=== PATIENT | male | born 1940 | race Caucasian/White ===

== ENCOUNTER 2023-03-05 10:07 | Emergency (ER) | payer MEDICARE, SELFPAY ==
[2023-03-05] VITALS (20 sets, daily range): BP systolic 186–240; BP diastolic 81–106; PULSE 49–78; RESP 14–23; TEMP 36.4–37; O2SAT 96–100; BMI 22.8
--- NOTE | 2023-03-05 10:14 | DI.RAD.S_ITS ---
PROCEDURE: XR CHEST 1V INDICATIONS: chest pain TECHNIQUE: One view of the chest was acquired. COMPARISON: None. FINDINGS: Surgical changes and devices: None. Lungs and pleura: Lungs are clear. No pleural effusions or pneumothorax. Mediastinum: Mediastinal contours appear normal. Heart size is normal. Bones and chest wall: No suspicious bony lesions. Overlying soft tissues appear unremarkable. IMPRESSION: No acute cardiopulmonary disease. Dictated by: Krzysztof Vasques M.D. on 03/05/2023 at 10:56 Approved by: Krzysztof Vasques M.D. on 03/05/2023 at 10:56
[2023-03-05] MEDS: ASPIRIN 81 MG CHEW TAB 324 MG PO (10:30)
[2023-03-05 10:38] LABS: INR 1.1 (0.9-1.3); Prothrombin Time 12.1 SECONDS (10.1-12.7)
[2023-03-05 10:40] LABS: PTT Partial Thromboplastin Tim 31 SECONDS (26-36)
[2023-03-05 10:41] LABS: Add Manual Diff / Slide Review NO; Basophils Absolute Auto 0 /uL (0-100); Basophils Percent Auto 0.8 % (0-2); Eosinophils Absolute Auto 300 /uL (0-450); Eosinophils Percent Auto 5.1 % (2-4); Hematocrit 41.2 % (41-53); Hemoglobin 14.6 g/dL (13.5-17.5); Lymphocytes Absolute Auto 800 /uL (1100-4500); Lymphocytes Percent Auto 16.5 % (25-40); Mean Corpuscular HGB Conc 35.4 % (30-36); Mean Corpuscular Hemoglobin 32.3 PG (26-34); Mean Corpuscular Volume 91.4 fL (80-100); Monocytes Absolute Auto 500 /uL (0-900); Monocytes Percent Auto 10.1 % (3-14); Neutrophils Absolute Auto 3400 /uL (1500-7000); Neutrophils Percent Auto 67.5 % (50-75); Platelet Count 143 X10^3/uL (150-400); Red Blood Cell Count 4.51 X10^6/uL (4.5-5.9); Red Cell Distribution Width 12.4 % (11.6-14.8)
[2023-03-05 10:44] LABS: Alanine Aminotransferase 21 IU/L (<50); Albumin 4.7 g/dL (3.5-5.0); Albumin Globulin Ratio 1.7 (1.0-2.8); Alkaline Phosphatase 102 U/L (38-126); Aspartate Aminotransferase 29 IU/L (17-59); BUN Creatinine Ratio 26.6 (6-22); Bilirubin Total 0.9 mg/dL (0.2-1.3); Blood Urea Nitrogen 33 mg/dL (9-20); Calcium 9.5 mg/dL (8.4-10.2); Carbon Dioxide 29 mmol/L (22-32); Chloride 103 mmol/L (98-107); Creatine Kinase 73 U/L (55-170); Estimated Glomerular Filt Rate 58 mL/min (>60); Globulin 2.8 g/dL (1.7-4.1); Glucose 95 mg/dL (80-110); HEMOLYSIS < 15 (0-50); Lipase 110 U/L (23-300); Magnesium 2.5 mg/dL (1.6-2.3); Potassium 3.9 mmol/L (3.4-5.1); Sodium 141 mmol/L (137-145); Total Protein 7.5 g/dL (6.3-8.2)
[2023-03-05 10:56] LABS: Troponin I < 0.012 ng/mL (0.01-0.034)
[2023-03-05 13:07] LABS: NT-proBNP (BNP-Adult 18+) 440 pg/mL (<450)
[2023-03-05 13:10] LABS: Troponin I < 0.012 ng/mL (0.01-0.034)
--- NOTE | 2023-03-05 14:42 | ED_ITS ---
HPI - Chest Pain <Catracho Roy PA-C - Last Filed: 03/05/23 16:16> General Chief Complaint: Chest Pain Stated Complaint: Sent by PCP for chest pains/ SOB Time Seen by Provider: 03/05/23 11:16 Mode of arrival: Family Vehicle History of Present Illness HPI narrative: 82-year-old male with past medical history CAD, status post stents in 2013 presents to the ED with 3 weeks of chest pressure on exertion. Patient states that he walks his dog daily, experiences chest tightness and pressure specifically when he is walking uphill. Patient also feels at that time that he needs to burp a lot, his symptoms improve with burping and belching. Patient's does endorse that patient has been belching a lot over the last 3 weeks. Patient states that he had similar symptoms when he had his stents put in in 2013. Patient denies fever, chills, sore throat, cough, shortness of breath, nausea, vomiting, lightheadedness, dizziness, syncope. Related Data Allergies Allergy/AdvReac Type Severity Reaction Status Date / Time No Known Allergies Allergy Unknown Verified 03/05/23 10:29 Review of Systems <Catracho Roy PA-C - Last Filed: 03/05/23 16:16> Review of Systems ROS Unobtainable: All systems reviewed & are unremarkable except as noted in HPI and below Constitutional Constitutional: Denies chills, Denies fatigue, Denies fever(s), Denies frequent falls, Denies lethargy and Denies weakness Eyes Eyes: Denies change in vision, Denies eye discharge, Denies irritation and Denies loss of vision ENT Ears, Nose, Mouth, and Throat: Denies change in voice, Denies dizziness, Denies neck pain, Denies sore throat and Denies throat swelling Cardiovascular Cardiovascular: Denies chest pain, Reports chest pain with activity, Denies irregular heart rhythm, Denies lightheadedness, Denies palpitations, Denies dyspnea, Denies dyspnea on exertion and Denies orthopnea Respiratory Respiratory: Denies cough, Denies dyspnea, Denies dyspnea on exertion and Denies wheezing Gastrointestinal Gastrointestinal: Denies abdominal pain, Reports belching, Denies change in bowel habits, Denies diarrhea, Denies nausea and Denies vomiting Genitourinary Genitourinary: Denies hematuria, Denies flank pain, Denies urinary incontinence and Denies urinary urgency Musculoskeletal Musculoskeletal: Denies back pain, Denies muscle weakness, Denies neck pain, Denies numbness and Denies tingling Integumentary/Breasts Skin/Breast: Denies pruritus, Denies erythema, Denies rash and Denies wounds Neurologic Neurologic: Denies behavioral changes, Denies confusion, Denies dizziness, Denies frequent falls, Denies loss of vision, Denies numbness, Denies tingling and Denies weakness Psychiatric Psychiatric: Denies anxiety, Denies behavioral changes, Denies confusion, Denies depression, Denies homicidal ideation and Denies suicidal ideation Endocrine Endocrine: Denies fatigue, Denies flushing and Denies palpitations Hematologic/Lymphatic Hematologic/Lymphatic: Denies easy bruising Allergic/Immunologic Allergic/Immunologic: Denies urticaria, Denies throat swelling and Denies wheezing Patient History <Catracho Roy PA-C - Last Filed: 03/05/23 16:16> Social History Smoking Status: Former smoker Smoking Status: Former smoker alcohol intake frequency: 0-2 drinks per day Substance Use Type: does not use Exam <Catracho Roy PA-C - Last Filed: 03/05/23 16:16> Narrative Exam Narrative: Const General:?cooperative, healthy appearing and comfortable [facility] Head:?normal to inspection Ears:?hearing grossly normal bilaterally Nose:?external nose normal Face and sinus:?normal facial exam and sinuses nontender Mouth:?oral mucosae normal Throat:?posterior oropharynx normal Eyes General:?appearance normal, both eyes and all related structures Neck Neck:?normal visual inspection and no lymphadenopathy noted Resp Effort & Inspection:?normal respiratory effort Auscultation:?clear to auscultation bilaterally Cardio Rate:?regular rate Rhythm:?regular rhythm GI Abdomen is soft, nondistended, nontender to palpation. Neuro General:?patient alert, patient awake and patient oriented x3 Initial Vital Signs Initial Vital Signs: Vital Signs Pulse Rate 78 03/05/23 10:13 Pulse Oximetry 99 03/05/23 10:13 <Rimma Wade DO - Last Filed: 03/05/23 19:19> Initial Vital Signs Initial Vital Signs: Vital Signs Pulse Rate 78 03/05/23 10:13 Pulse Oximetry 99 07/12/23 10:13 Course <Catracho Roy PA-C - Last Filed: 03/05/23 16:16> Orders Ordered: ED Orders 03/05/23 10:16 EKG-12 Lead Stat 03/05/23 10:20 Complete Blood Count AUTO DIFF Stat Comprehensive Metabolic Panel Stat Lipase Stat Magnesium Stat PTT Partial Thromboplastin Ezekiel Stat Prothrombin Time INR Stat Troponin & CK Cardiac Panel Stat 03/05/23 12:30 BNP [NT-proBNP (BNP-Adult 18+)] Stat Troponin I Stat 03/05/23 14:18 EKG-12 Lead Stat Discontinued Medications Aspirin (Aspirin 81 Mg Chew Tab) 324 mg PO NOW ONE Stop: 03/05/23 10:15 Last Admin: 03/05/23 10:30 Dose: 324 mg Documented By: LINDA Famotidine (Famotidine 20 Mg/2 Ml Vial) 40 mg IV NOW LOKI Last Admin: 03/05/23 15:07 Dose: 40 mg Documented By: JESSICA Vital Signs Vital signs: Vital Signs - 8 hr 03/05/23 11:30 03/05/23 11:30 03/05/23 12:00 Pulse Rate 54 L Respiratory Rate 22 Blood Pressure 186/81 H 196/84 H Pulse Oximetry 96 Oxygen Delivery Method 03/05/23 12:00 03/05/23 12:30 03/05/23 12:34 Pulse Rate 53 L 64 56 L Respiratory Rate 15 20 23 Blood Pressure Pulse Oximetry 97 98 98 Oxygen Delivery Method 03/05/23 12:34 03/05/23 12:36 03/05/23 12:36 Pulse Rate 53 L Respiratory Rate 21 Blood Pressure 208/95 H 192/89 H Pulse Oximetry 100 Oxygen Delivery Method 03/05/23 13:00 03/05/23 13:01 03/05/23 13:01 Pulse Rate 50 L 52 L Respiratory Rate 17 18 Blood Pressure 193/85 H Pulse Oximetry 99 98 Oxygen Delivery Method 03/05/23 13:30 03/05/23 13:30 03/05/23 14:00 Pulse Rate 49 L 53 L Respiratory Rate 17 20 Blood Pressure 191/84 H Pulse Oximetry 99 98 Oxygen Delivery Method 03/05/23 14:01 03/05/23 14:01 03/05/23 14:30 Pulse Rate 51 L 53 L Respiratory Rate 23 20 Blood Pressure 192/81 H Pulse Oximetry 99 99 Oxygen Delivery Method Room Air 03/05/23 14:31 03/05/23 14:31 03/05/23 15:00 Pulse Rate 53 L 69 Respiratory Rate 18 Blood Pressure 195/85 H Pulse Oximetry 98 99 Oxygen Delivery Method 03/05/23 15:01 03/05/23 15:01 03/05/23 16:00 Pulse Rate 71 Respiratory Rate Blood Pressure 240/101 H 210/81 H Pulse Oximetry 97 Oxygen Delivery Method 03/05/23 16:00 Pulse Rate 52 L Respiratory Rate 18 Blood Pressure Pulse Oximetry 98 Oxygen Delivery Method <Rimma Wade, - Last Filed: 03/05/23 19:19> Orders Ordered: ED Orders 03/05/23 10:16 EKG-12 Lead Stat 03/05/23 10:20 Complete Blood Count AUTO DIFF Stat Comprehensive Metabolic Panel Stat Lipase Stat Magnesium Stat PTT Partial Thromboplastin Ezekiel Stat Prothrombin Time INR Stat Troponin & CK Cardiac Panel Stat 03/05/23 12:30 BNP [NT-proBNP (BNP-Adult 18+)] Stat Troponin I Stat 03/05/23 14:18 EKG-12 Lead Stat Discontinued Medications Aspirin (Aspirin 81 Mg Chew Tab) 324 mg PO NOW ONE Stop: 03/05/23 10:15 Last Admin: 03/05/23 10:30 Dose: 324 mg Documented By: LINDA Famotidine (Famotidine 20 Mg/2 Ml Vial) 40 mg IV NOW LOKI Last Admin: 03/05/23 15:07 Dose: 40 mg Documented By: JESSICA Vital Signs Vital signs: Vital Signs - 8 hr 03/05/23 11:30 03/05/23 11:30 03/05/23 12:00 Pulse Rate 54 L Respiratory Rate 22 Blood Pressure 186/81 H 196/84 H Pulse Oximetry 96 Oxygen Delivery Method 03/05/23 12:00 03/05/23 12:30 03/05/23 12:34 Pulse Rate 53 L 64 56 L Respiratory Rate 15 20 23 Blood Pressure Pulse Oximetry 97 98 98 Oxygen Delivery Method 03/05/23 12:34 03/05/23 12:36 03/05/23 12:36 Pulse Rate 53 L Respiratory Rate 21 Blood Pressure 208/95 H 192/89 H Pulse Oximetry 100 Oxygen Delivery Method 03/05/23 13:00 03/05/23 13:01 03/05/23 13:01 Pulse Rate 50 L 52 L Respiratory Rate 17 18 Blood Pressure 193/85 H Pulse Oximetry 99 98 Oxygen Delivery Method 03/05/23 13:30 03/05/23 13:30 03/05/23 14:00 Pulse Rate 49 L 53 L Respiratory Rate 17 20 Blood Pressure 191/84 H Pulse Oximetry 99 98 Oxygen Delivery Method 03/05/23 14:01 03/05/23 14:01 03/05/23 14:30 Pulse Rate 51 L 53 L Respiratory Rate 23 20 Blood Pressure 192/81 H Pulse Oximetry 99 99 Oxygen Delivery Method Room Air 03/05/23 14:31 03/05/23 14:31 03/05/23 15:00 Pulse Rate 53 L 69 Respiratory Rate 18 Blood Pressure 195/85 H Pulse Oximetry 98 99 Oxygen Delivery Method 03/05/23 15:01 03/05/23 15:01 03/05/23 16:00 Pulse Rate 71 Respiratory Rate Blood Pressure 240/101 H 210/81 H Pulse Oximetry 97 Oxygen Delivery Method 03/05/23 16:00 Pulse Rate 52 L Respiratory Rate 18 Blood Pressure Pulse Oximetry 98 Oxygen Delivery Method MDM - Chest Pain <Catracho Roy PA-C - Last Filed: 03/05/23 16:16> Lab Data 03/05/23 10:20 03/05/23 10:20 Labs: Lab Results 03/05/23 03/05/23 03/05/23 Range/Units 10:20 10:20 10:20 WBC 5.0 (4.5-11.0) X10^3/uL RBC 4.51 (4.5-5.9) X10^6/uL Hgb 14.6 (13.5-17.5) g/dL Hct 41.2 (41-53) % MCV 91.4 (80-100) fL MCH 32.3 (26-34) PG MCHC 35.4 (30-36) % RDW 12.4 (11.6-14.8) % Plt Count 143 L (150-400) X10^3/uL Neut % (Auto) 67.5 (50-75) % Lymph % (Auto) 16.5 L (25-40) % [place] % (Auto) 10.1 (3-14) % Eos % (Auto) 5.1 H (2-4) % Baso % (Auto) 0.8 (0-2) % Neut # (Auto) 3400 (7605-1310) /uL Lymph # (Auto) 800 L (6349-4416) /uL [place] # (Auto) 500 (0-900) /uL Eos # (Auto) 300 (0-450) /uL Baso # (Auto) 0 (0-100) /uL PT 12.1 (10.1-12.7) SECONDS INR 1.1 (0.9-1.3) APTT 31 (26-36) SECONDS Sodium 141 (137-145) mmol/L Potassium 3.9 (3.4-5.1) mmol/L Chloride 103 (98-107) mmol/L Carbon Dioxide 29 (22-32) mmol/L BUN 33 H (9-20) mg/dL Creatinine 1.24 (0.66-1.25) mg/dL Estimated GFR 58 L (>60) mL/min BUN/Creatinine Ratio 26.6 H (6-22) Glucose 95 (80-110) mg/dL Calcium 9.5 (8.4-10.2) mg/dL Magnesium 2.5 H (1.6-2.3) mg/dL Total Bilirubin 0.9 (0.2-1.3) mg/dL AST 29 (17-59) IU/L ALT 21 (<50) IU/L Alkaline Phosphatase 102 (38-126) U/L Total Creatine Kinase 73 (55-170) U/L Troponin I < 0.012 (0.01-0.034) ng/mL NT-Pro-B Natriuret Pep (<450) pg/mL Total Protein 7.5 (6.3-8.2) g/dL Albumin 4.7 (3.5-5.0) g/dL Globulin 2.8 (1.7-4.1) g/dL Albumin/Globulin Ratio 1.7 (1.0-2.8) Lipase 110 (23-300) U/L 03/05/23 03/05/23 Range/Units 12:30 12:30 WBC (4.5-11.0) X10^3/uL RBC (4.5-5.9) X10^6/uL Hgb (13.5-17.5) g/dL Hct (41-53) % MCV (80-100) fL MCH (26-34) PG MCHC (30-36) % RDW (11.6-14.8) % Plt Count (150-400) X10^3/uL Neut % (Auto) (50-75) % Lymph % (Auto) (25-40) % [place] % (Auto) (3-14) % Eos % (Auto) (2-4) % Baso % (Auto) (0-2) % Neut # (Auto) (5234-9566) /uL Lymph # (Auto) (6908-3287) /uL [place] # (Auto) (0-900) /uL Eos # (Auto) (0-450) /uL Baso # (Auto) (0-100) /uL PT (10.1-12.7) SECONDS INR (0.9-1.3) APTT (26-36) SECONDS Sodium (137-145) mmol/L Potassium (3.4-5.1) mmol/L Chloride (98-107) mmol/L Carbon Dioxide (22-32) mmol/L BUN (9-20) mg/dL Creatinine (0.66-1.25) mg/dL Estimated GFR (>60) mL/min BUN/Creatinine Ratio (6-22) Glucose (80-110) mg/dL Calcium (8.4-10.2) mg/dL Magnesium (1.6-2.3) mg/dL Total Bilirubin (0.2-1.3) mg/dL AST (17-59) IU/L ALT (<50) IU/L Alkaline Phosphatase (38-126) U/L Total Creatine Kinase (55-170) U/L Troponin I < 0.012 (0.01-0.034) ng/mL NT-Pro-B Natriuret Pep 440 (<450) pg/mL Total Protein (6.3-8.2) g/dL Albumin (3.5-5.0) g/dL Globulin (1.7-4.1) g/dL Albumin/Globulin Ratio (1.0-2.8) Lipase (23-300) U/L MDM Narrative Medical decision making narrative: 82-year-old male with past medical history CAD, status post stents in 2013 presents to the ED with 3 weeks of chest pressure on exertion. Concern for ACS versus CHF versus GERD versus gastritis versus other. Will obtain EKG, chest x- ray, labs, troponin, BNP. Labs, chest x-ray, troponin x2, BNP within normal limits. EKG does show some ST depressions in the lateral leads. Repeat EKG unchanged. Patient was given 324 mg of aspirin, Pepcid AC. Patient continued to be stable and without chest pain in the ED. his PCP Dr. Kiser was consulted, given stable angine, she recommends outpatient echocardiography and stress test. She will see the patient early next week. Discussed findings and next steps with patient. ED return precautions were discussed. He verbalized understanding. Medical records reviewed: Yes <Rimma Wade DO - Last Filed: 03/05/23 19:19> Lab Data Labs: Lab Results 03/05/23 03/05/23 03/05/23 Range/Units 10:20 10:20 10:20 WBC 5.0 (4.5-11.0) X10^3/uL RBC 4.51 (4.5-5.9) X10^6/uL Hgb 14.6 (13.5-17.5) g/dL Hct 41.2 (41-53) % MCV 91.4 (80-100) fL MCH 32.3 (26-34) PG MCHC 35.4 (30-36) % RDW 12.4 (11.6-14.8) % Plt Count 143 L (150-400) X10^3/uL Neut % (Auto) 67.5 (50-75) % Lymph % (Auto) 16.5 L (25-40) % [place] % (Auto) 10.1 (3-14) % Eos % (Auto) 5.1 H (2-4) % Baso % (Auto) 0.8 (0-2) % Neut # (Auto) 3400 (1601-5926) /uL Lymph # (Auto) 800 L (2721-9213) /uL [place] # (Auto) 500 (0-900) /uL Eos # (Auto) 300 (0-450) /uL Baso # (Auto) 0 (0-100) /uL PT 12.1 (10.1-12.7) SECONDS INR 1.1 (0.9-1.3) APTT 31 (26-36) SECONDS Sodium 141 (137-145) mmol/L Potassium 3.9 (3.4-5.1) mmol/L Chloride 103 (98-107) mmol/L Carbon Dioxide 29 (22-32) mmol/L BUN 33 H (9-20) mg/dL Creatinine 1.24 (0.66-1.25) mg/dL Estimated GFR 58 L (>60) mL/min BUN/Creatinine Ratio 26.6 H (6-22) Glucose 95 (80-110) mg/dL Calcium 9.5 (8.4-10.2) mg/dL Magnesium 2.5 H (1.6-2.3) mg/dL Total Bilirubin 0.9 (0.2-1.3) mg/dL AST 29 (17-59) IU/L ALT 21 (<50) IU/L Alkaline Phosphatase 102 (38-126) U/L Total Creatine Kinase 73 (55-170) U/L Troponin I < 0.012 (0.01-0.034) ng/mL NT-Pro-B Natriuret Pep (<450) pg/mL Total Protein 7.5 (6.3-8.2) g/dL Albumin 4.7 (3.5-5.0) g/dL Globulin 2.8 (1.7-4.1) g/dL Albumin/Globulin Ratio 1.7 (1.0-2.8) Lipase 110 (23-300) U/L 03/05/23 03/05/23 Range/Units 12:30 12:30 WBC (4.5-11.0) X10^3/uL RBC (4.5-5.9) X10^6/uL Hgb (13.5-17.5) g/dL Hct (41-53) % MCV (80-100) fL MCH (26-34) PG MCHC (30-36) % RDW (11.6-14.8) % Plt Count (150-400) X10^3/uL Neut % (Auto) (50-75) % Lymph % (Auto) (25-40) % [place] % (Auto) (3-14) % Eos % (Auto) (2-4) % Baso % (Auto) (0-2) % Neut # (Auto) (4403-5810) /uL Lymph # (Auto) (7833-0586) /uL [place] # (Auto) (0-900) /uL Eos # (Auto) (0-450) /uL Baso # (Auto) (0-100) /uL PT (10.1-12.7) SECONDS INR (0.9-1.3) APTT (26-36) SECONDS Sodium (137-145) mmol/L Potassium (3.4-5.1) mmol/L Chloride (98-107) mmol/L Carbon Dioxide (22-32) mmol/L BUN (9-20) mg/dL Creatinine (0.66-1.25) mg/dL Estimated GFR (>60) mL/min BUN/Creatinine Ratio (6-22) Glucose (80-110) mg/dL Calcium (8.4-10.2) mg/dL Magnesium (1.6-2.3) mg/dL Total Bilirubin (0.2-1.3) mg/dL AST (17-59) IU/L ALT (<50) IU/L Alkaline Phosphatase (38-126) U/L Total Creatine Kinase (55-170) U/L Troponin I < 0.012 (0.01-0.034) ng/mL NT-Pro-B Natriuret Pep 440 (<450) pg/mL Total Protein (6.3-8.2) g/dL Albumin (3.5-5.0) g/dL Globulin (1.7-4.1) g/dL Albumin/Globulin Ratio (1.0-2.8) Lipase (23-300) U/L Imaging Data Chest x-ray: Radiologist's Impression: Close Chest X-Ray (Signed) Krzysztof Vasques - 03/05/23 Launch?[address] [address] XRay Report Signed Patient: Howard Akbar MR#: [id number] : 1940 Acct:[id number] Age/Sex: 82 / M Date of Service: 03/05/23 Loc: ED Accession Number: [id number] ?? Procedure: XR chest 1V Ordering Provider: Rimma Wade D.O. PROCEDURE:? XR CHEST 1V ? INDICATIONS:? chest pain ? TECHNIQUE:? One view of the chest was acquired.? ? COMPARISON:? None. ? FINDINGS:? ? Surgical changes and devices:? None.? ? Lungs and pleura:? Lungs are clear.? No pleural effusions or pneumothorax.? ? Mediastinum:? Mediastinal contours appear normal.? Heart size is normal.? ? Bones and chest wall:? No suspicious bony lesions.? Overlying soft tissues appear unremarkable.? ? IMPRESSION:? No acute cardiopulmonary disease. ? ? Dictated by: Krzysztof Vaqsues M.D. on 03/05/2023 at 10:56 ? ? Approved by: Krzysztof Vasques M.D. on 03/05/2023 at 10:56?? ECG Data Attestation: I personally reviewed and interpreted this ECG as follows: Prior ECG tracings: not available for review Interpretation: Mank: Sinus rhythm rate of 68, P are 230 QRS 86 QTC depression lateral lead, T- waves slightly inverted in aVL. No elevation appreciated. Mank: EKG 2. Sinus rhythm first-degree AV block rate of 60 MS 216 QRS 84 QTC 432. No acute ST elevation. Some depression lateral leads, no elevation appreciated. No changes between 1 and aVL from 1st and 2nd. Mank: Patient does not have priors for comparison. Discharge Plan Departure Patient Disposition: Home Clinical Impression: Chest pain Instructions: DI for Atypical Chest Pain Activity Restrictions/Additional Instructions: You were evaluated in the ED today for chest pressure. Your chest x-ray, labs were normal. Your EKG showed some ST depressions, which will need further follow-up with a stress test and echocardiogram. Your PCP Dr. Kiser was cons ulted, she will see you in the office early next week, she will arrange for a echocardiogram and a stress test. Please call Dr. Kiser 1st thing tomorrow morning to schedule an appointment. Return to the ED if you have worsening chest pain, shortness of breath. Referrals: Emmy Kiser MD [Primary Care Provider] - Stand Alone Forms: Patient Portal/API <Rimma Wade DO - Last Filed: 03/05/23 19:19> Cosign ED Attending Cosignature Attestation: 82-year-old male with complaint of chest pain, does have cardiac history troponins are negative x2 no elevation BNP, no prior EKGs for comparison depression but unclear if this is new or old. Discussed possibly observing patient for chest pain arbs. Case was discussed with patient's primary care service for stable angina for observation. They elect for short term outpatient stress test and cardiac workup.
[2023-03-05] MEDS: FAMOTIDINE 20 MG/2 ML VIAL 40 MG IV (15:07)
== END 2023-03-05 16:26 | disposition home or self-care (01) ==
PROVIDERS: Emergency Medicine; Emergency Provider Student in an Organized Health Care Education/Training Program; PCP Family Medicine
DX: R07.9 Chest pain, unspecified (principal)
CPT/HCPCS: 36415; 71045; 80053; 82550; 83690; 83735; 83880; 84484; 85025; 85610; 85730; 93005; 96374; 99284

== ENCOUNTER → 2023-03-07 16:05 | Outpatient (CLI) | payer MEDICARE, SELFPAY ==
[2023-03-07 17:23] LABS: Cholesterol 154 mg/dL (140-199); HDL Cholesterol 29 mg/dL (40-60); LDL Cholesterol Calculated 78 mg/dL (<100); Triglycerides 236 mg/dL (35-150)
== END ==
PROVIDERS: PCP Family Medicine; Referring Provider Internal Medicine Cardiovascular Disease; Visit Provider Internal Medicine Cardiovascular Disease
DX: I10 Essential (primary) hypertension (principal)
CPT/HCPCS: 36415; 80061

== ENCOUNTER 2023-03-11 13:37 | Observation (INO) | payer MEDICARE, SELFPAY ==
[2023-03-11] VITALS (33 sets, daily range): BP systolic 137–221; BP diastolic 55–111; PULSE 56–99; RESP 13–37; TEMP 36.6–36.8; O2SAT 92–100; BMI 21.7
--- NOTE | 2023-03-11 13:39 | DI.CT.S_ITS ---
PROCEDURE: CT STROKE INDICATIONS: very confused TECHNIQUE: Noncontrast 4.5 mm thick angled axial sections acquired from the foramen magnum to the vertex, with coronal reformats. For radiation dose reduction, the following was used: automated exposure control, adjustment of mA and/or kV according to patient size. COMPARISON: None. FINDINGS: CSF spaces: Basal cisterns are patent. No extra-axial fluid collections. The ventricles are symmetric in size and shape. Brain: No intracranial bleeds or masses. There is cerebral volume loss for age, with resultant ventricular and sulcal prominence. There are periventricular and deep white matter chronic small vessel ischemic changes. There is intracranial internal carotid artery atherosclerosis. Skull and face: Calvarium and visualized facial bones appear intact, without suspicious lesions. Sinuses: Left sphenoid sinus air-fluid level IMPRESSION: 1. No intracranial hemorrhage or other acute intracranial abnormality. 2. Air-fluid level left sphenoid sinus correlation for acute sinusitis may be helpful This study fulfills neurological imaging criteria for inclusion or exclusion of acute stroke therapies based on available published neurological guidelines. Dictated by: Colin Beach M.D. on 03/11/2023 at 13:58 Approved by: Colin Beach M.D. on 03/11/2023 at 14:02
--- NOTE | 2023-03-11 13:39 | DI.CT.S_ITS ---
PROCEDURE: CT ANGIO HEAD AND NECK INDICATIONS: very confused TECHNIQUE: After the administration of intravenous contrast, 1 mm thick sections acquired from the aortic arch through the Williamson of [place]. Post-contrast 4.5 mm thick sections then re-acquired from the foramen magnum to the vertex. 3-dimensional otsytzp-nwqrejzrf-izcqzlhkzx (MIP) and/or volume rendering reformats were acquired of the central intracranial vasculature and neck separately. For radiation dose reduction, the following was used: automated exposure control, adjustment of mA and/or kV according to patient size. COMPARISON: [facility], CT, CT STROKE, 03/11/2023, 13:47. FINDINGS: Image quality: Excellent. BRAIN: The ventricular system and cortical sulci demonstrate atrophy, consistent for the patient's stated age. There are areas of hypodensity within the periventricular and subcortical white matter. There is no acute intra-or extra axial fluid collection. No acute hemorrhage, mass lesion or midline shift. Brainstem is unremarkable. Globes are symmetrical. Sinuses are aerated. Osseous structures are intact. HEAD CT ANGIOGRAPHY: Anterior circulation: Intracranial internal carotid arteries are normal in size and flow. The flow within the paired anterior cerebral arteries is normal and symmetric. The flow within the middle cerebral arteries is normal and symmetric. The anterior communicating artery is seen. No aneurysms are seen. Posterior circulation: There is a right vertebral artery dominance. There is only very faintly visualized contrast opacification of the distal left vertebral artery. Visualized portions of the vertebral arteries demonstrate normal caliber, and join to form a normal appearing basilar artery. Flow within the posterior cerebral arteries is normal and symmetric. No aneurysms are seen. NECK CT ANGIOGRAPHY: Carotid system: The great vessels demonstrate a conventional anatomy as they arise from the aortic arch. The origins of the common carotid arteries appear patent. The common carotid arteries demonstrate normal caliber and courses. The bifurcation regions are both widely patent. The internal carotid arteries demonstrate normal calibers and courses. 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 Posterior circulation: There is a right vertebral artery dominance. The left vertebral artery demonstrates very minimal atretic flow throughout its course and is not clearly identified at the origin. Soft tissues: Visualized neck soft tissues demonstrate no suspicious abnormalities. Bones: No suspicious bony lesions. Visualized cervical spine appears normally aligned. IMPRESSION: 1. No acute intracranial process. 2. Moderate atrophy and chronic microvascular ischemic changes. 3 No areas of hemodynamically significant stenosis, vascular occlusion or aneurysmal dilation within the anterior circulation. 4. Markedly atretic appearance of opacification within the distal aspect of the left vertebral artery without clearly identified flow more proximally. 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 5. No hemodynamically significant stenosis within the internal carotid arteries. 6. Incidental note of right-sided aortic arch. Any quantitative measurements of stenosis were performed using NASCET criteria. Dictated by: Ashley Hermosillo M.D. on 03/11/2023 at 14:28 Approved by: Ashley Hermosillo M.D. on 03/11/2023 at 14:44
[2023-03-11 13:52] LABS: Add Manual Diff / Slide Review NO; Basophils Absolute Auto 0 /uL (0-100); Basophils Percent Auto 0.6 % (0-2); Eosinophils Absolute Auto 100 /uL (0-450); Eosinophils Percent Auto 2.8 % (2-4); Hematocrit 37.3 % (41-53); Hemoglobin 13.3 g/dL (13.5-17.5); Lymphocytes Absolute Auto 900 /uL (1100-4500); Mean Corpuscular HGB Conc 35.7 % (30-36); Mean Corpuscular Hemoglobin 32.5 PG (26-34); Monocytes Absolute Auto 600 /uL (0-900); Monocytes Percent Auto 12.5 % (3-14); Neutrophils Absolute Auto 3400 /uL (1500-7000); Neutrophils Percent Auto 67.1 % (50-75); Platelet Count 133 X10^3/uL (150-400); Red Cell Distribution Width 12.4 % (11.6-14.8)
[2023-03-11 13:59] LABS: INR 1.1 (0.9-1.3); Prothrombin Time 12.7 SECONDS (10.1-12.7)
[2023-03-11 14:02] LABS: Alanine Aminotransferase 18 IU/L (<50); Albumin 3.9 g/dL (3.5-5.0); Albumin Globulin Ratio 1.7 (1.0-2.8); Alkaline Phosphatase 84 U/L (38-126); Aspartate Aminotransferase 28 IU/L (17-59); BUN Creatinine Ratio 24.3 (6-22); Bilirubin Total 0.7 mg/dL (0.2-1.3); Blood Urea Nitrogen 45 mg/dL (9-20); Calcium 8.5 mg/dL (8.4-10.2); Carbon Dioxide 28 mmol/L (22-32); Chloride 99 mmol/L (98-107); Creatine Kinase 83 U/L (55-170); Estimated Glomerular Filt Rate 35 mL/min (>60); Ethanol (ETOH) < 10 mg/dL; Globulin 2.3 g/dL (1.7-4.1); Glucose 102 mg/dL (80-110); HEMOLYSIS < 15 (0-50); PTT Partial Thromboplastin Tim 25 SECONDS (26-36); Potassium 3.5 mmol/L (3.4-5.1); Sodium 135 mmol/L (137-145); Total Protein 6.2 g/dL (6.3-8.2)
[2023-03-11 14:12] LABS: Troponin I < 0.012 ng/mL (0.01-0.034)
--- NOTE | 2023-03-11 14:47 | ED.NEUROSD ---
HPI - Neuro Symptoms/Deficit General Chief Complaint: Unresponsive Stated Complaint: verbally unresponsive Time Seen by Provider: 03/11/23 13:39 Source: EMS Mode of arrival: EMS History of Present Illness HPI Narrative: Patient is an 83-year-old male history of coronary artery disease, with stents in 2013 presenting today with altered mental status. Last known well is about 12:30 per . She reports that they walked around the neighborhood came back in to make lunch he sat on the couch in was not acting quite right. She thought it might be his heart she gave him aspirin and nitro and called EMS. EMS arrived found him hypotensive talking gibberish not really able to follow commands but no obvious facial droop or focal deficits. Patient was seen evaluated here last week for chest pain and discharged home On Anticoagulants: No Related Data Home Medications Medication Instructions Recorded Confirmed aspirin 81 mg tablet 81 mg PO QAM 03/11/23 03/11/23 losartan 50 mg-hydrochlorothiazide 1 tab PO QAM 03/11/23 03/11/23 12.5 mg tablet nitroglycerin 0.3 mg sublingual See Rx Instructions .Route .COMPLEX 03/11/23 03/11/23 tablet Allergies Allergy/AdvReac Type Severity Reaction Status Date / Time No Known Allergies Allergy Unknown Verified 03/05/23 10:29 Review of Systems Review of Systems ROS Unobtainable: All systems reviewed & are unremarkable except as noted in HPI and below Hematologic/Lymphatic On Anticoagulants: No Patient History Medical History (Updated 03/11/23 @ 16:51 by Cristy Hicks RN) Hypertension Surgical History (Updated 03/11/23 @ 16:51 by Cristy Hicks RN) H/O heart artery stent Social History Smoking Status: Former smoker Smoking Status: Former smoker alcohol intake frequency: 0-2 drinks per day Substance Use Type: does not use Exam Initial Vital Signs Initial Vital Signs: Vital Signs Temperature 97.9 F 03/11/23 13:34 Pulse Rate 64 03/11/23 13:34 Respiratory Rate 20 03/11/23 13:34 Blood Pressure 146/69 H 03/11/23 13:34 Pulse Oximetry 94 03/11/23 13:34 Oxygen Delivery Method Room Air 03/11/23 13:34 GENERAL: Alert confused 83-year-old male HEENT: Head atraumatic,EOMI, pupils reactive, face symmetric, moist mucous membranes CARDIOVASCULAR: Regular rate and rhythm without murmurs, rubs or gallops. RESPIRATORY: Breath sounds equal bilaterally, no wheezes rales or rhonchi. ABDOMEN: Soft, nontender. Normoactive bowel sounds all 4 quadrants. No guarding or rebound EXTREMITIES: Normal range of motion, no clubbing or edema. Neurovascularly intact NEUROLOGICAL: Alert and oriented x1.Normal gait and speech. Cranial nerves II through XII grossly intact. Good [id number], good [id number], strength equal bilaterally, no no slurring of speech but inability to identify objects, sensation in tact to soft touch bilaterally, no visual changes, no facial droop SKIN: Warm, dry, no laceration, no petechiae, no rashes or lesions. Scores NIH Stroke Scale Level of Conciousness: Not alert, but arousable by minor stim to obey, answer or respond Ask month/age: Answers one question correctly, intubated follow commands Open/close eyes, close hand: Performs both tasks correctly Best gaze horizontal: Normal Visual rosario: No visual loss Facial palsy: Normal symetrical movement Left arm drift: No drift for full 10 sec Right arm drift: No drift for full 10 sec Left leg drift: No drift for full 5 sec Right leg drift: No drift for full 5 sec Limb ataxia: Absent Sensory on face/arms/legs: Normal, no sensory loss Best language: Mild to moderate, slurs some words Dysarthria: Mild to mod,some slurring Extinction or inattention: No abnormality Total NIH Stroke scale score: 4 Course Orders Ordered: ED Orders 03/11/23 12:41 Complete Blood Count AUTO DIFF Stat Comprehensive Metabolic Panel Stat Ethanol (ETOH) Stat PTT Partial Thromboplastin Ezekiel Stat Prothrombin Time INR Stat Troponin & CK Cardiac Panel Stat 03/11/23 13:[address] angio head and neck Stat 03/11/23 13:40 EKG-12 Lead Stat 03/11/23 14:08 COVID19 -Nasal RAPID Stat 03/11/23 15:00 Urine Drug Screen, Rapid Stat 03/11/23 15:16 Urinalysis and Microscopic Stat Discontinued Medications Aspirin (Aspirin 81 Mg Chew Tab) 324 mg PO NOW ONE Stop: 03/11/23 15:54 Last Admin: 03/11/23 16:30 Dose: Not Given Documented By: NR Vital Signs Vital signs: Vital Signs - 8 hr 03/11/23 13:34 03/11/23 14:00 03/11/23 15:25 Temperature 97.9 F Pulse Rate 64 59 L 60 Respiratory Rate 20 20 20 Blood Pressure 146/69 H 137/65 184/84 H Pulse Oximetry 94 98 94 Oxygen Delivery Method Room Air Room Air Room Air 03/11/23 14:30 03/11/23 15:00 03/11/23 15:25 Temperature Pulse Rate 61 56 L 61 Respiratory Rate 20 20 20 Blood Pressure 164/77 H 150/55 H Pulse Oximetry 95 95 Oxygen Delivery Method Room Air 03/11/23 15:30 03/11/23 15:57 03/11/23 15:57 Temperature Pulse Rate 57 L 67 Respiratory Rate 23 37 H Blood Pressure 201/90 H Pulse Oximetry 99 98 Oxygen Delivery Method 03/11/23 16:00 03/11/23 16:00 03/11/23 16:30 Temperature Pulse Rate 69 62 Respiratory Rate 32 H 24 Blood Pressure 190/88 H Pulse Oximetry 98 99 Oxygen Delivery Method 03/11/23 16:31 03/11/23 16:31 03/11/23 17:00 Temperature Pulse Rate 60 Respiratory Rate 22 Blood Pressure 167/70 H 177/111 H Pulse Oximetry 99 Oxygen Delivery Method 03/11/23 17:00 03/11/23 17:03 03/11/23 17:03 Temperature Pulse Rate 59 L 63 Respiratory Rate 22 20 Blood Pressure 182/89 H Pulse Oximetry 100 99 Oxygen Delivery Method 03/11/23 17:15 03/11/23 17:30 03/11/23 17:30 Temperature Pulse Rate 63 60 Respiratory Rate 18 17 Blood Pressure 186/85 H Pulse Oximetry 99 100 Oxygen Delivery Method 03/11/23 17:45 03/11/23 18:00 03/11/23 18:00 Temperature Pulse Rate 59 L 65 Respiratory Rate 20 29 H Blood Pressure 197/103 H Pulse Oximetry 99 99 Oxygen Delivery Method 03/11/23 18:15 03/11/23 18:30 Temperature Pulse Rate 62 66 Respiratory Rate 29 H 33 H Blood Pressure Pulse Oximetry Oxygen Delivery Method MDM - Neuro Symptoms/Deficit Lab Data 03/11/23 12:41 03/11/23 12:41 Labs: Lab Results 03/11/23 03/11/23 03/11/23 Range/Units 12:41 12:41 12:41 WBC 5.0 (4.5-11.0) X10^3/uL RBC 4.10 L (4.5-5.9) X10^6/uL Hgb 13.3 L (13.5-17.5) g/dL Hct 37.3 L (41-53) % MCV 91.0 (80-100) fL MCH 32.5 (26-34) PG MCHC 35.7 (30-36) % RDW 12.4 (11.6-14.8) % Plt Count 133 L (150-400) X10^3/uL Neut % (Auto) 67.1 (50-75) % Lymph % (Auto) 17.0 L (25-40) % Kings % (Auto) 12.5 (3-14) % Eos % (Auto) 2.8 (2-4) % Baso % (Auto) 0.6 (0-2) % Neut # (Auto) 3400 (5982-1808) /uL Lymph # (Auto) 900 L (1169-9538) /uL Kings # (Auto) 600 (0-900) /uL Eos # (Auto) 100 (0-450) /uL Baso # (Auto) 0 (0-100) /uL PT 12.7 (10.1-12.7) SECONDS INR 1.1 (0.9-1.3) APTT 25 L (26-36) SECONDS Sodium 135 L (137-145) mmol/L Potassium 3.5 (3.4-5.1) mmol/L Chloride 99 (98-107) mmol/L Carbon Dioxide 28 (22-32) mmol/L BUN 45 H (9-20) mg/dL Creatinine 1.85 H (0.66-1.25) mg/dL Estimated GFR 35 L (>60) mL/min BUN/Creatinine Ratio 24.3 H (6-22) Glucose 102 (80-110) mg/dL Calcium 8.5 (8.4-10.2) mg/dL Total Bilirubin 0.7 (0.2-1.3) mg/dL AST 28 (17-59) IU/L ALT 18 (<50) IU/L Alkaline Phosphatase 84 (38-126) U/L Total Creatine Kinase 83 (55-170) U/L Troponin I < 0.012 (0.01-0.034) ng/mL Total Protein 6.2 L (6.3-8.2) g/dL Albumin 3.9 (3.5-5.0) g/dL Globulin 2.3 (1.7-4.1) g/dL Albumin/Globulin Ratio 1.7 (1.0-2.8) Urine Color Urine Appearance Urine pH (4.5-8.0) Ur Specific [place] (1.000-1.035) Urine Protein (Negative) Urine Glucose (UA) (Negative) g/dL Urine Ketones (NEGATIVE) Urine Occult Blood (Negative) Urine Nitrate (Negative) Urine Bilirubin (NEGATIVE) Urine Urobilinogen (0.2) E.U./dL Ur Leukocyte Esterase (NEGATIVE) Urine RBC (0-5/HPF) Urine WBC (0-5/HPF) Ur Squamous Epith Cells (0-5/HPF) Urine Bacteria (None) Ur Culture Indicated? U Opiates 300ng/mL cut (Negative) Ur Oxycodone Screen (Negative) Urine Methadone Screen (Negative) Ur Barbiturates Screen (Negative) U Tricyclic Antidepress (Negative) Ur Phencyclidine Scrn (Negative) Ur Amphetamines Screen (Negative) U Methamphetamines Scrn (Negative) Ur MDMA Scrn (Ecstasy) (Negative) U Benzodiazepines Scrn (Negative) Urine Cocaine Screen (Negative) U Marijuana (THC) Screen (Negative) Ethyl Alcohol < 10 ( - 10) mg/dL SARS-CoV-2 (PCR) (Negative) 03/11/23 03/11/23 03/11/23 Range/Units 14:08 15:00 15:16 WBC (4.5-11.0) X10^3/uL RBC (4.5-5.9) X10^6/uL Hgb (13.5-17.5) g/dL Hct (41-53) % MCV (80-100) fL MCH (26-34) PG MCHC (30-36) % RDW (11.6-14.8) % Plt Count (150-400) X10^3/uL Neut % (Auto) (50-75) % Lymph % (Auto) (25-40) % Kings % (Auto) (3-14) % Eos % (Auto) (2-4) % Baso % (Auto) (0-2) % Neut # (Auto) (6869-2836) /uL Lymph # (Auto) (6105-5243) /uL Kings # (Auto) (0-900) /uL Eos # (Auto) (0-450) /uL Baso # (Auto) (0-100) /uL PT (10.1-12.7) SECONDS INR (0.9-1.3) APTT (26-36) SECONDS Sodium (137-145) mmol/L Potassium (3.4-5.1) mmol/L Chloride (98-107) mmol/L Carbon Dioxide (22-32) mmol/L BUN (9-20) mg/dL Creatinine (0.66-1.25) mg/dL Estimated GFR (>60) mL/min BUN/Creatinine Ratio (6-22) Glucose (80-110) mg/dL Calcium (8.4-10.2) mg/dL Total Bilirubin (0.2-1.3) mg/dL AST (17-59) IU/L ALT (<50) IU/L Alkaline Phosphatase (38-126) U/L Total Creatine Kinase (55-170) U/L Troponin I (0.01-0.034) ng/mL Total Protein (6.3-8.2) g/dL Albumin (3.5-5.0) g/dL Globulin (1.7-4.1) g/dL Albumin/Globulin Ratio (1.0-2.8) Urine Color Yellow Urine Appearance Clear Urine pH 6.0 (4.5-8.0) Ur Specific [place] 1.010 (1.000-1.035) Urine Protein Negative (Negative) Urine Glucose (UA) Negative (Negative) g/dL Urine Ketones Trace H (NEGATIVE) Urine Occult Blood Negative (Negative) Urine Nitrate Negative (Negative) Urine Bilirubin Negative (NEGATIVE) Urine Urobilinogen 0.2 (0.2) E.U./dL Ur Leukocyte Esterase Negative (NEGATIVE) Urine RBC None seen (0-5/HPF) Urine WBC None seen (0-5/HPF) Ur Squamous Epith Cells None seen (0-5/HPF) Urine Bacteria None seen (None) Ur Culture Indicated? Cult not indicated U Opiates 300ng/mL cut Negative (Negative) Ur Oxycodone Screen Negative (Negative) Urine Methadone Screen Negative (Negative) Ur Barbiturates Screen Negative (Negative) U Tricyclic Antidepress Negative (Negative) Ur Phencyclidine Scrn Negative (Negative) Ur Amphetamines Screen Negative (Negative) U Methamphetamines Scrn Negative (Negative) Ur MDMA Scrn (Ecstasy) Negative (Negative) U Benzodiazepines Scrn Negative (Negative) Urine Cocaine Screen Negative (Negative) U Marijuana (THC) Screen Negative (Negative) Ethyl Alcohol ( - 10) mg/dL SARS-CoV-2 (PCR) Negative (Negative) Imaging Data CT scan - head: Radiologist's Impression: PROCEDURE:? CT STROKE ? INDICATIONS:? very confused ? TECHNIQUE:? Noncontrast 4.5 mm thick angled axial sections acquired from the foramen magnum to the vertex, with coronal reformats.? For radiation dose reduction, the following was used:? automated exposure control, adjustment of mA and/or kV according to patient size.? ? COMPARISON:? None. ? FINDINGS:? ? CSF spaces:? Basal cisterns are patent.? No extra-axial fluid collections.? The ventricles are symmetric in size and shape.? ? Brain:? No intracranial bleeds or masses.? There is cerebral volume loss for age, with resultant ventricular and sulcal prominence.? There are periventricular and deep white matter chronic small vessel ischemic changes.? There is intracranial internal carotid artery atherosclerosis.? ? Skull and face:? Calvarium and visualized facial bones appear intact, without suspicious lesions.? ? Sinuses:? Left sphenoid sinus air-fluid level ? IMPRESSION:? 1. No intracranial hemorrhage or other acute intracranial abnormality. 2. Air-fluid level left sphenoid sinus correlation for acute sinusitis may be helpful ? This study fulfills neurological imaging criteria for inclusion or exclusion of acute stroke therapies based on available published neurological guidelines.? ? ? Dictated by: Colin Beach M.D. on 03/11/2023 at 13:58 ?? CTA - brain/neck: Radiologist's Impression: PROCEDURE:? CT ANGIO HEAD AND NECK ? INDICATIONS:? very confused ? TECHNIQUE:? After the administration of intravenous contrast, 1 mm thick sections acquired from the aortic arch through the [place] of [place].? Post-contrast 4.5 mm thick sections then re-acquired from the foramen magnum to the vertex.? 3-dimensional dttvner-vwyncjfrd-ebxaywvfri (MIP) and/or volume rendering reformats were acquired of the central intracranial vasculature and neck separately. For radiation dose reduction, the following was used:? automated exposure control, adjustment of mA and/or kV according to patient size.? ? COMPARISON:? [facility], CT, CT STROKE, 03/11/2023, 13:47. ? FINDINGS:? Image quality:? Excellent.? ? BRAIN:? The ventricular system and cortical sulci demonstrate atrophy, consistent for the patient's stated age. There are areas of hypodensity within the periventricular and subcortical white matter.? There is no acute intra-or extra axial fluid collection. No acute hemorrhage, mass lesion or midline shift. Brainstem is unremarkable. Globes are symmetrical. Sinuses are aerated. Osseous structures are intact. ? HEAD CT ANGIOGRAPHY:? Anterior circulation:? Intracranial internal carotid arteries are normal in size and flow.? The flow within the paired anterior cerebral arteries is normal and symmetric.? The flow within the middle cerebral arteries is normal and symmetric.? The anterior communicating artery is seen.? No aneurysms are seen.? ? Posterior circulation:? There is a right vertebral artery dominance.? There is only very faintly visualized contrast opacification of the distal left vertebral artery.? Visualized portions of the vertebral arteries demonstrate normal caliber, and join to form a normal appearing basilar artery.? Flow within the posterior cerebral arteries is normal and symmetric.? No aneurysms are seen.? ? NECK CT ANGIOGRAPHY:? Carotid system:? The great vessels demonstrate a conventional anatomy as they arise from the aortic arch.? The origins of the common carotid arteries appear patent.? The common carotid arteries demonstrate normal caliber and courses.? The bifurcation regions are both widely patent.? The internal carotid arteries demonstrate normal calibers and courses.? ? Vasculature:? 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 ? Posterior circulation:? There is a right vertebral artery dominance.? The left vertebral artery demonstrates very minimal atretic flow throughout its course and is not clearly identified at the origin. ? Soft tissues:? Visualized neck soft tissues demonstrate no suspicious abnormalities.? ? Bones:? No suspicious bony lesions.? Visualized cervical spine appears normally aligned.? IMPRESSION:? ? 1. No acute intracranial process. ? 2. Moderate atrophy and chronic microvascular ischemic changes. ? 3 No areas of hemodynamically significant stenosis, vascular occlusion or aneurysmal dilation within the anterior circulation. ? 4. Markedly atretic appearance of opacification within the distal aspect of the left vertebral artery without clearly identified flow more proximally.? 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 ? 5. No hemodynamically significant stenosis within the internal carotid arteries. ? 6. Incidental note of right-sided aortic arch.? ? ? Any quantitative measurements of stenosis were performed using NASCET criteria.? ? ? Dictated by: Ashley Hermosillo M.D. on 03/11/2023 at 14:28 ? ? Approved by: Ashley Hermosillo M.D. on 03/11/2023 at 14:44 ? ECG Data Interpretation: Sinus rhythm rate 60 CO interval 248 QRS [address] changes or T-wave inversions similar to prior MDM Narrative Medical decision making narrative: Patient 83-year-old male with history of coronary artery disease presents today as an acute stroke. Symptoms are quickly improving. Initially not really able to follow commands or understand but moving all extremities. Speech and comprehension started room no longer a tPA candidate. Head CT and CT angio showed no large vessel occlusion or intracranial hemorrhage. Blood work does show increased creatinine of 1.85 previously 1.2, no electrolyte abnormality no leukocytosis or anemia, urinalysis is also negative does not show any evidence of infection. Patient is re-evaluated NIH stroke scale of 1 Dr. Kiser updated patient's symptoms test results and accepts patient Discharge Plan Departure Patient Disposition: Admitted as Observation Clinical Impression: Brain TIA Admit Date/Time: 03/11/23 18:50 Admit Provider: Emmy Kiser
[2023-03-11 14:50] LABS: COVID19 -Nasal RAPID Negative (Negative)
[2023-03-11 15:26] LABS: Appearance Urine UA CLEAR; Bilirubin Urine UA NEGATIVE (NEGATIVE); Color Urine UA YELLOW; Glucose Urine UA NEGATIVE (Negative); Ketones Urine UA TRACE (NEGATIVE); Leukocyte Esterase Urine UA NEGATIVE (NEGATIVE); Nitrite Urine UA NEGATIVE (Negative); Occult Blood Urine UA NEGATIVE (Negative); Protein Urine UA NEGATIVE (Negative); Urobilinogen Urine UA 0.2 E.U./dL (0.2)
[2023-03-11 16:09] LABS: UR Morphine/Opiate cutoff 300 Negative (Negative); Ur Creatinine Normal (Normal); Ur Specific Gravity Normal (Normal); Urine Amphetamines Negative (Negative); Urine Barbiturates Negative (Negative); Urine Benzodiazepines Negative (Negative); Urine Cocaine Negative (Negative); Urine MDMA Negative (Negative); Urine Methadone Negative (Negative); Urine Methamphetamines Negative (Negative); Urine Oxycodone Negative (Negative); Urine Phencyclidine Negative (Negative); Urine Tetrahydrocannabinol Negative (Negative); Urine Tricyclic Antidepressant Negative (Negative); Urine pH Normal (Normal)
--- NOTE | 2023-03-11 16:15 | PC.NURSE ---
Report given to Maria Isabel ABREU
[2023-03-11 16:16] LABS: Bacteria Urine None Seen; Culture Indicated Urine Cult Not Indicated; RBC Urine None Seen (0-5/HPF); Squamous Epithelial Cell Urine None Seen (0-5/HPF); WBC Urine None Seen (0-5/HPF)
--- NOTE | 2023-03-11 19:03 | DI.MRI.S_ITS ---
PROCEDURE: MR HEAD/BRAIN WO/W CON INDICATIONS: tia TECHNIQUE: Noncontrast axial T1 spin echo, axial T2 fast spin echo, sagittal and axial FLAIR, coronal T2 fast spin echo, axial gradient echo, axial diffusion and ADC through the brain. After the administration of contrast, axial and coronal and sagittal T1 spin echo with fat saturation through the brain. COMPARISON: [facility], CT, CT ANGIO HEAD AND NECK, 03/11/2023, 13:47. [facility], CT, CT STROKE, 03/11/2023, 13:47. FINDINGS: Image quality: Excellent. CSF spaces: Basal cisterns are patent. No extra-axial fluid collections. Ventricles are normal in size and shape. Brain: No midline shift. No acute intracranial hemorrhage or mass effect. No abnormal intracranial enhancement. There is cerebral volume loss for age. There is periventricular white matter chronic small vessel ischemic change. The brainstem appears normal. Diffusion-weighted images demonstrate no acute ischemic insults. No chronic ischemic insults. Normal intravascular flow voids are present. Scattered punctate foci of microhemorrhage are seen within the cortex on susceptibility weighted images, most notably in the right parietal region. Skull and face: Calvarial marrow is normal in signal. Orbits appear normal. Sinuses: Air-fluid level versus mucous retention cyst in the left sphenoid sinus. The visualized paranasal sinuses and the mastoid air cells are otherwise clear. IMPRESSION: 1. No acute intracranial hemorrhage or recent infarct. 2. Chronic microvascular ischemic changes and generalized parenchymal volume loss. 3. Peripheral foci of micro hemorrhage on susceptibility weighted images could indicate chronic cerebral amyloid angiopathy. Recommend clinical correlation. 4. No enhancing intracranial mass. Approved by: Colin Bell M.D. on 03/11/2023 at 21:12
--- NOTE | 2023-03-11 19:03 | DI.ECHO.S_ITS ---
[facility]---------+ [facility] +---------+ : : [address] : : : : [phone] : : : : Phone: [phone] Echocardiogram Report + + :Name: RONAK EASTON Study Date: 03/12/2023 Height: 68 in : :[facility] ReadingLocation: Weight: 160 lb : : Gender: Male BSA: 1.9 m2 : :: 1940 Age: 83 yrs BP: 144/73 mmHg: :Reason For Study: TIA : :Ordering Physician: BECKY, : :SAMINA Performed By: Jeny Crowley : :Referring: SAMINA PENA : + + Interpretation Summary Normal sinus rhythm. Normal LV size and wall thickness. Normal wall motion and LV systolic function. Ejection fraction is 55-60%. Normal chamber sizes. There is mild mitral annular calcification along the posterior leaflet. The tip of the anterior mitral valve leaflet is calcified. Otherwise no significant valvular abnormalities. Compared to prior study April 19, 2016, no changes have occurred. Procedure: A two-dimensional transthoracic echocardiogram with color flow and Doppler was performed. The study quality was technically adequate. Comparison is made with the echocardiogram of 04/19/2016. The patient was in sinus rhythm with heart rates between 59-64 bpm during the exam. Left Ventricle: The left ventricle is normal in size and wall thickness. Right Ventricle: The right ventricle is normal in size and function. Atria: The left atrial size is normal. Right atrial size is normal. There is no Doppler evidence for an interatrial shunt. Mitral Valve: The mitral valve leaflets appear mildly thickened, but open well. The mitral valve mean gradient is 2.2 mmHg. There is mild to moderate mitral regurgitation. Aortic Valve: The aortic valve is trileaflet. The aortic valve opens well. There is no aortic valve stenosis. There is mild aortic regurgitation. Tricuspid Valve: The tricuspid valve is normal in structure and function. There is trace tricuspid regurgitation. Pulmonic Valve: The pulmonic valve leaflets are thin and pliable; valve motion is normal. There is no pulmonic valvular regurgitation. Great Vessels: The aortic root is normal size. The dimensions of the ascending aorta are normal. The IVC is of normal diameter and collapses greater than 50% with a sniff. This suggests a low right atrial pressure of 3 mm Hg. Pericardium/ Pleura There is no pericardial effusion. There is no pleural effusion. MMode/2D Measurements & Calculations LVIDd: 4.6 cm LVOT diam: 2.0 cm LVIDs: 3.2 cm Ao root diam: 3.2 cm FS: 30.2 % asc Aorta Diam: 3.4 cm EPSS: 1.4 cm IVSd: 1.0 cm LVPWd: 0.93 cm LV platt. diameter/BSA (cm/m^2): 2.5 LV sys. diameter/BSA (cm/m^2): 1.7 LA A2 area: 15.6 cm2 RA long axis: 4.6 cm LA A4 area: 13.3 cm2 RA area: 12.6 cm2 LA length (vol): 4.1 cm RA vol: 29.6 ml LA vol: 42.4 ml RA : 15.9 ml/m2 LA vol index: 22.8 ml/m2 IVC diam: 1.5 cm RVD1 (basal): 3.1 cm RVD2 (mid): 2.6 cm TAPSE: 2.5 cm Doppler Measurements & Calculations Ao V2 max: 97.2 cm/sec LVOT Max James: 88.1 cm/sec Ao V2 mean: 69.2 cm/sec LV V1 max P.1 mmHg Ao max P.8 mmHg LV V1 VTI: 22.3 cm Ao mean P.1 mmHg JEANINE(I,D): 3.0 cm2 Ao V2 VTI: 23.4 cm JEANINE(V,D): 2.9 cm2 sev ratio: 0.95 JEANINE indexed to BSA (cm^2/m^2): 1.6 MV E max james: 75.3 cm/sec PA V2 max: 82.8 cm/sec MV A max james: 110.7 cm/sec PA V2 mean: 57.5 cm/sec MV E/A: 0.68 PA mean P.5 mmHg Med Peak E' James: 3.7 cm/sec PA pr(Accel): 36.2 mmHg E/E' med: 20.5 Lat Peak E' James: 6.9 cm/sec E/E' lat: 10.9 E/e' average: 15.7 MV dec time: 0.36 sec MVA(VTI): 1.8 cm2 MV V2 mean: 68.8 cm/sec SV(LVOT): 70.7 ml MV mean P.2 mmHg MV V2 VTI: 39.3 cm Electronically signed by: Sally Palm M.D. on Reading Physician:03/12/2023 03:19 PM
--- NOTE | 2023-03-11 19:06 | PM.HP.1 ---
History of Present Illness History of Present Illness Date Patient Seen: 03/11/23 Time Patient Seen: 19:06 Date of Onset of Symptoms: 03/11/23 Chief complaint: verbally unresponsive Narrative: This is a very pleasant 83-year-old male who presents to the ER via EMS with complaints of being verbally unresponsive. Patient was in his usual state of health this morning and went for a walk with his and felt good and had no difficulty. They walk for about a mi and a half. They walk the dogs every morning and he then was sitting down afterwards and looked over and noticed that he was somewhat slumped and unresponsive. He did not have any neurologic deficit or facial droop. He did not have any difficulty breathing or shortness of breath. Because patient was in the ER about a week and half ago with symptoms consistent with stable angina she gave him a nitroglycerin and baby aspirin and called 911. His blood pressure was low when paramedics came but since he was in route to the ER is been 140 or higher really up into the upper 190s. He was found to not have any focal neurologic deficit in was awake but unable to answer questions at his time of arrival. A CT scan was performed that showed no evidence of bleed etc.. Then a CT angiogram of the head and neck were done which were reportedly normal. The case was not discussed with Neurology due to his improvement and he did not meet the criteria for tPA because of his clinical findings and he had no clear neurologic deficit. He was admitted to the hospital for further monitoring and treatment. Patient has not been seen by his primary care physician Dr. Hoyt since October of 2019. Shortly prior to this he did have a cardiac stent placed. He is not on any medications and states that he will not take a statin because that will kill him. He is recently met Dr. Cartagena last but he did not like him because he was wearing a mask. He refused to go on a statin. An echo was ordered and a stress Mibi was ordered I believe for this . The patient was seen last week and was started on losartan/hydrochlorothiazide and has been taking this in his states his blood pressure has been good in the 120s over 70s to 80s. Prior to this over the last 3 weeks it has been rising into the 150s over 80s to 90s. In the ER visit he was in last week his blood pressure was 240/118. He denies any symptoms of headaches or chest pain or shortness of breath or lightheadedness or dizziness. He had no numbness tingling dysarthria or motor deficit prior to this episode. He is not had any fevers chills or other problems. Past medical history: Coronary artery disease, status post stent placement I believe in 2019 Hypertension, untreated Hyperlipidemia, untreated Current medications are losartan 50/hydrochlorothiazide Allergies: He is allergic to codeine Past surgical history: Tonsillectomy at age 5 Health related behavior: Patient smoked but quit 35 years ago Patient has a glass of wine a day but has not been drinking wine over the last 2 weeks Patient is very active and walks 1/2-2 miles. Just recently he started having exertional chest pressure and was seen by Cardiology for this as well as an ER visit. Family history: Father had peripheral vascular disease and underwent surgery and had a large stroke and Mom in her 40s from complications depression His older brother 2 years ago from complications of Parkinson's disease Social history patient is . Previously lived in [place] and they moved to and a [facility] 11 years ago. He is 2 daughters who live in the [facility] area and these are from a prior marriage. Twelve point review of systems is negative other than above PFS Medical History (Updated 03/11/23 @ 16:51 by Cristy Hicks RN) Hypertension Surgical History (Updated 03/11/23 @ 16:51 by Cristy Hicks RN) H/O heart artery stent Social History Smoking Status: Former smoker Meds Home Medications and Allergies Home Medications Medication Instructions Recorded Confirmed Type aspirin 81 mg tablet 81 mg PO QAM 03/11/23 03/11/23 History losartan 50 mg-hydrochlorothiazide 1 tab PO QAM 03/11/23 03/11/23 History 12.5 mg tablet nitroglycerin 0.3 mg sublingual See Rx Instructions .Route .COMPLEX 03/11/23 03/11/23 History tablet Allergies Allergy/AdvReac Type Severity Reaction Status Date / Time No Known Allergies Allergy Unknown Verified 03/05/23 10:29 Exam Vital Signs (past 8 hours): - 03/11/23 13:34 03/11/23 14:00 03/11/23 15:25 Temperature 97.9 F Pulse Rate 64 59 L 60 Respiratory Rate 20 20 20 Blood Pressure 146/69 H 137/65 184/84 H Pulse Oximetry 94 98 94 Oxygen Delivery Method Room Air Room Air Room Air 03/11/23 14:30 03/11/23 15:00 03/11/23 15:25 Temperature Pulse Rate 61 56 L 61 Respiratory Rate 20 20 20 Blood Pressure 164/77 H 150/55 H Pulse Oximetry 95 95 Oxygen Delivery Method Room Air 03/11/23 15:30 03/11/23 15:57 03/11/23 15:57 Temperature Pulse Rate 57 L 67 Respiratory Rate 23 37 H Blood Pressure 201/90 H Pulse Oximetry 99 98 Oxygen Delivery Method 03/11/23 16:00 03/11/23 16:00 03/11/23 16:30 Temperature Pulse Rate 69 62 Respiratory Rate 32 H 24 Blood Pressure 190/88 H Pulse Oximetry 98 99 Oxygen Delivery Method 03/11/23 16:31 03/11/23 16:31 03/11/23 17:00 Temperature Pulse Rate 60 Respiratory Rate 22 Blood Pressure 167/70 H 177/111 H Pulse Oximetry 99 Oxygen Delivery Method 03/11/23 17:00 03/11/23 17:03 03/11/23 17:03 Temperature Pulse Rate 59 L 63 Respiratory Rate 22 20 Blood Pressure 182/89 H Pulse Oximetry 100 99 Oxygen Delivery Method 03/11/23 17:15 03/11/23 17:30 03/11/23 17:30 Temperature Pulse Rate 63 60 Respiratory Rate 18 17 Blood Pressure 186/85 H Pulse Oximetry 99 100 Oxygen Delivery Method 03/11/23 17:45 03/11/23 18:00 03/11/23 18:00 Temperature Pulse Rate 59 L 65 Respiratory Rate 20 29 H Blood Pressure 197/103 H Pulse Oximetry 99 99 Oxygen Delivery Method 03/11/23 18:15 03/11/23 18:30 Temperature Pulse Rate 62 66 Respiratory Rate 29 H 33 H Blood Pressure Pulse Oximetry Oxygen Delivery Method Oxygen Delivery Method Room Air Narrative Exam Narrative: Patient is afebrile vital signs stable other than elevated blood pressure at 196/103. Patient is alert and oriented person place and time. Patient repeats himself and has difficulty falling instructions when I do a neurologic exam HEENT: Unremarkable other than poor dentition Neck: Supple without adenopathy or thyromegaly and no jugular venous distention or bruits Chest: Clear to auscultation without wheezes rhonchi or crackles but decreased breath sounds in the bases Cor: Regular rate and rhythm with distant S1-S2 Abdomen: Positive bowel sounds, soft, nontender, no hepatosplenomegaly Extremities no edema, pulses intact Neurologic exam shows cranial nerves 2-12 are grossly intact. Romberg is negative. [id number] shows no dysmetria except slight on the left and patient has difficulty following commands. Strength is 5/5 in all large muscle groups bilateral upper and lower extremities. Sensations intact to light touch and DTRs are symmetric and intact. Skin is negative for rash Objective Labs 03/11/23 12:41 03/11/23 12:41 Labs: Laboratory Results - last 24 hr 03/11/23 03/11/23 03/11/23 12:41 12:41 12:41 WBC 5.0 RBC 4.10 L Hgb 13.3 L Hct 37.3 L MCV 91.0 MCH 32.5 MCHC 35.7 RDW 12.4 Plt Count 133 L Neut % (Auto) 67.1 Lymph % (Auto) 17.0 L Eagle % (Auto) 12.5 Eos % (Auto) 2.8 Baso % (Auto) 0.6 Neut # (Auto) 3400 Lymph # (Auto) 900 L Eagle # (Auto) 600 Eos # (Auto) 100 Baso # (Auto) 0 PT 12.7 INR 1.1 APTT 25 L Sodium 135 L Potassium 3.5 Chloride 99 Carbon Dioxide 28 BUN 45 H Creatinine 1.85 H Estimated GFR 35 L BUN/Creatinine Ratio 24.3 H Glucose 102 Calcium 8.5 Total Bilirubin 0.7 AST 28 ALT 18 Alkaline Phosphatase 84 Total Creatine Kinase 83 Troponin I < 0.012 Total Protein 6.2 L Albumin 3.9 Globulin 2.3 Albumin/Globulin Ratio 1.7 Urine Color Urine Appearance Urine pH Ur Specific [place] Urine Protein Urine Glucose (UA) Urine Ketones Urine Occult Blood Urine Nitrate Urine Bilirubin Urine Urobilinogen Ur Leukocyte Esterase Urine RBC Urine WBC Ur Squamous Epith Cells Urine Bacteria Ur Culture Indicated? U Opiates 300ng/mL cut Ur Oxycodone Screen Urine Methadone Screen Ur Barbiturates Screen U Tricyclic Antidepress Ur Phencyclidine Scrn Ur Amphetamines Screen U Methamphetamines Scrn Ur MDMA Scrn (Ecstasy) U Benzodiazepines Scrn Urine Cocaine Screen U Marijuana (THC) Screen Ethyl Alcohol < 10 SARS-CoV-2 (PCR) 03/11/23 03/11/23 03/11/23 14:08 15:00 15:16 WBC RBC Hgb Hct MCV MCH MCHC RDW Plt Count Neut % (Auto) Lymph % (Auto) Eagle % (Auto) Eos % (Auto) Baso % (Auto) Neut # (Auto) Lymph # (Auto) Eagle # (Auto) Eos # (Auto) Baso # (Auto) PT INR APTT Sodium Potassium Chloride Carbon Dioxide BUN Creatinine Estimated GFR BUN/Creatinine Ratio Glucose Calcium Total Bilirubin AST ALT Alkaline Phosphatase Total Creatine Kinase Troponin I Total Protein Albumin Globulin Albumin/Globulin Ratio Urine Color Yellow Urine Appearance Clear Urine pH 6.0 Ur Specific [place] 1.010 Urine Protein Negative Urine Glucose (UA) Negative Urine Ketones Trace H Urine Occult Blood Negative Urine Nitrate Negative Urine Bilirubin Negative Urine Urobilinogen 0.2 Ur Leukocyte Esterase Negative Urine RBC None seen Urine WBC None seen Ur Squamous Epith Cells None seen Urine Bacteria None seen Ur Culture Indicated? Cult not indicated U Opiates 300ng/mL cut Negative Ur Oxycodone Screen Negative Urine Methadone Screen Negative Ur Barbiturates Screen Negative U Tricyclic Antidepress Negative Ur Phencyclidine Scrn Negative Ur Amphetamines Screen Negative U Methamphetamines Scrn Negative Ur MDMA Scrn (Ecstasy) Negative U Benzodiazepines Scrn Negative Urine Cocaine Screen Negative U Marijuana (THC) Screen Negative Ethyl Alcohol SARS-CoV-2 (PCR) Negative Assessment & Plan Assessment & Plan narrative: 83-year-old male with possible TIA Plan: Will admit to the hospital for further evaluation and treatment. Will consult PT OT and speech therapy tomorrow. Will get an echo in the morning Will get an MRI of the head with contrast tomorrow Will allow permissive blood pressures but if his blood pressure stays consistently above a systolic of 200 we will give hydralazine. Will continue with telemetry on Continue with baby aspirin daily Assessment 2. Hypertension Plan: Will hold the losartan hydrochlorothiazide due to acute kidney disease. Will recheck in morning. May just try the losartan. Depending how he is doing consider amlodipine. Beta-siria or diltiazem would not be appropriate as patient has relative bradycardia. Assessment 3. Acute kidney disease Plan: Will hold losartan hydrochlorothiazide due to kidney function. Will recheck tomorrow. Assessment 4. Questionable memory issues unclear if related to the event Plan: Will continue to follow 78 minutes was spent with patient discussing with ER physician, nursing, patient in his . Reviewing his previous workup including in the ER and current data. Also formulating a plan and documentation Code status is full code DVT prophylaxis Lovenox GI prophylaxis pantoprazole
[2023-03-11] MEDS: HYDRALAZINE 20 MG/ML VIAL 10 MG IV (20:18)
--- NOTE | 2023-03-11 21:06 | PC.NURSE ---
patient ambulated from room 7 to room 6 with steady gait to a hospital bed. patient alert and oriented to person place and time.
[2023-03-12] VITALS (30 sets, daily range): BP systolic 143–195; BP diastolic 66–91; PULSE 48–68; RESP 3–37; TEMP 36.1–36.6; O2SAT 98–100
[2023-03-12 04:50] LABS: Creatine Kinase 78 U/L (55-170)
[2023-03-12 05:01] LABS: Troponin I 0.012 ng/mL (0.01-0.034)
[2023-03-12 08:19] LABS: MRSA (Nasal) PCR Not Detected (Not Detect)
--- NOTE | 2023-03-12 09:19 | CM.DANOTE ---
DCP Assessment Note: Patient is an 83yo Male here under the care of Dr. Kiser/Hazel for being verbally uresponsive. PCP: Rashel P[facility] reviewed EMR. Per Dr. Oliva, likely home today with no needs. LOGISTICS AND PLANNING MANAGER entered room and introduced self and role. Patient was sitting up in bed eating breakfast and appeared A/Ox4. Patient was accompanied by spouse Chel ([phone]). Patient and spouse report patient is very active and independent. Drives and uses no DME. Patient and spouse feel like they have no needs from CM team. Patient reports feeling good today. Plan: patient will likely d/c home day with spouse in POV. Likely no needs from CM team but will continue to follow as needed. ANA Reveles Discharge Planning/Care Management CM Discharge Assessment Start: 03/12/23 09:18 Freq: Status: Active Protocol: Document 03/12/23 09:18 (Rec: 03/12/23 09:19 [id number]) Discharge Planning Assessment Assigned Cloth Worker ANA Chaparro DPOA/Assigned Designee Name Chel (spouse) Contact Information [phone] Advance Directives? No History Provided By Patient,Medical Record Prior Living Arrangements House Household Members spouse Type of transporation used prior to Drives own vehicle admit Independent with ADL's Yes Is patient alert and oriented? Yes Barriers to Discharge No Transportation Arrangement spouse in POV Referrals Initiated None needed Whiteboard Updated in Patient Room with Yes name and ext. # of Cloth Worker Review Status In Process Next Review Type Continued Stay Review
[2023-03-12] MEDS: ASPIRIN EC 81 MG TABLET PO (09:56)
[2023-03-12] MEDS: PANTOPRAZOLE DR 20 MG TABLET PO (09:57)
[2023-03-12] MEDS: LOSARTAN 50 MG TABLET PO (10:43)
[2023-03-12] MEDS: hydroCHLOROthiazide 25 MG TABLET 12.5 MG PO (10:43)
--- NOTE | 2023-03-12 11:06 | PT-IP ANOTE ---
Attempted to evaluate patient at 1106, was receiving his Echo at that time, will attempt again later today.
--- NOTE | 2023-03-12 14:20 | PT.IIE ---
Surgical History (Last Updated 03/11/23 @ 16:51 by Cristy Hicks, RN) H/O heart artery stent Medical History (Last Updated 03/11/23 @ 16:51 by Cristy Hicks, LOIS) Hypertension Physical Therapy Inpatient Evaluation/Re-Eval M1 PT/OT-IP Prior Functional Status Start: 03/12/23 14:21 Freq: NEEDED Status: Active Protocol: Document 03/12/23 14:03 DCW (Rec: 03/12/23 14:29 DCW [id number]) Medical Review Prior Functional Status Medical History Reviewed Yes Communication WNL Mobility and Gait WNL Social History Household Members spouse Living Arrangements House Number of Floors (Floors) One Floor Number of Stairs To Enter/Railing? 0 KAMI M2 PT-IP Current Condition Start: 03/12/23 14:21 Freq: NEEDED Status: Active Protocol: Document 03/12/23 14:03 DCW (Rec: 03/12/23 14:29 DC [id number]) Physical Therapy Current Condition Current Condition Evaluation Date 03/12/23 Treatment Diagnosis Confusion Onset Date 03/11/23 M3 PT-IP Subjective Start: 03/12/23 14:21 Freq: NEEDED Status: Active Protocol: Document 03/12/23 14:03 DCW (Rec: 03/12/23 14:29 DCW [id number]) Subjective Physical Therapy Visit Type Type Initial Evaluation Visit Start Time 14:03 Visit Stop Time 14:20 Total Visit Minutes 17 Notes Pt sitting in recliner speaking with spouse when therapist entered room. Pt reports no pain, anxious to get home. Feels like he is 90 % better, was out walking in the [place] with his earlier , felt slightly weak, but otherwise doing well. Physical Therapy Visit Comments Patient Comments I need to get out of here, play with my dog, and watch my [facility] [facility] [employer]. Therapy Pain Assessment Pain Present Pain Present Denied Pain M4 PT-IP Mobility and Gait Start: 03/12/23 14:21 Freq: NEEDED Status: Active Protocol: Document 03/12/23 14:03 DCW (Rec: 03/12/23 14:29 DC [id number]) PT-Transfer Assessment Sit to and From Stand Sit to and from Stand Independent Equipment Transfer Assistive Device None Transfer Ability Level of Assist Independent Gait Assessment Gait Gait Assistance Required: Independent Distance (Feet) 350 Assistive Devices Assistive Device None Gait Deviations General Gait Pattern Within Normal Limits Stair Climbing Assessment Evaluation Level of Assist On Stairs Standby Assistance Devices Stair Climbing Assistive Devices Right Railing Technique/Endurance Stair Climbing Direction Ascend and Descend Stair Climbing Technique Step Over Step Number of Steps Climbed 3 Query Text: Stair Climbing Set # Repetitions (reps) 1 M5 PT-IP Objective Assessments Start: 03/12/23 14:21 Freq: NEEDED Status: Active Protocol: Document 03/12/23 14:03 DCW (Rec: 03/12/23 14:29 DC [id number]) Orientation Orientation/Cognition Level of Alertness Alert Orientation Name,Age,Birthday,Month,Date, Year,Day of Week,Place, Situation Safety Awareness Understands Safety Issues Memory Description No Deficits Noted Gross Range of Motion Lower Extremity ROM Assessment Within Functional Limits Strength Lower Extremity Strength Assessment Within Functional Limits M7 PT-IP Assessment and Plan Start: 03/12/23 14:21 Freq: NEEDED Status: Active Protocol: Document 03/12/23 14:03 DCW (Rec: 03/12/23 14:29 DC [id number]) PT Summary Assessment and Plan Potential Status of Condition at Evaluation Stable Summary Assessment Summary Pt nearly at baseline upon evaluation. Able to perform independent transfers, walked in [place] 350' without any assistive device, ascended/ descended stairs, and then returned to room with no fatigue or LOB, was able to maintain full conversation at all times while ambulating. Pt showing no physical deficits at this time, will likely do well discharging home, no safety concerns from a PT standpoint, appropriate to discharge when medically cleared. Frequency of Treatment Frequency Of Treatment Discharge Recommendations To Nursing Amount of Assist Needed Independent Discharge Recommendations PT Discharge Recommendations Home Transportation Needs at Discharge Private Vehicle
--- NOTE | 2023-03-12 14:49 | P.DS_ITS ---
History of Present Illness History of Present Illness Date Patient Seen: 03/12/23 Time Patient Seen: 14:00 Date of Onset of Symptoms: 03/11/23 Chief complaint: verbally unresponsive Narrative: chief complaint: unresponsive spell Patient is feeling fine today ambulating eating bathroom all fine agrees he is his usual irascible self. Imaging thus far unconcerning - echo obtained, read pending, has stress test scheduled for one week from now -keep that appointment. Discharge Providers Provider Date of admission: 03/11/23 18:50 Discharge Date: 03/12/23 Primary care physician: Emmy Kiser MD Consults: 03/11/23 19:00 Consult to Occupational Therapy Evaluate & Treat Comment: tia Physician Instructions: Evaluate and treat Consult to Physical Therapy Evaluate & Treat Comment: tia Physician Instructions: Evaluate and Treat Discharge provider: Femi Oliva MD Summary Hospital Course Discharge Diagnosis: #TIA/CVA #Hypertension #Acute on chronic kidney disease, GFR 35 Hospital Course: Pt presented with unresponsive spell that self-resolved within 30 minutes back to baseline. workup unremarkable, starting statin, stress test next week, feels still at baseline now, f/up in clinic with BMP recheck of kidney, think about switching off thiazide. Status at Discharge Cognitive/behavioral status at discharge: at baseline, oriented Functional status at discharge: independent ambulation Overall status at discharge: patient is back to baseline Exam Vital Signs (past 8 hours): - 03/12/23 07:00 03/12/23 07:15 03/12/23 07:30 Temperature Pulse Rate 55 L 50 L 66 Respiratory Rate 8 L 11 L 29 H Blood Pressure Pulse Oximetry 99 Oxygen Flow Rate 03/12/23 07:31 03/12/23 07:31 03/12/23 07:45 Temperature Pulse Rate 65 57 L Respiratory Rate 22 37 H Blood Pressure 143/66 H Pulse Oximetry 99 Oxygen Flow Rate 03/12/23 08:00 03/12/23 08:15 03/12/23 08:30 Temperature Pulse Rate 57 L 57 L 55 L Respiratory Rate 24 30 H 25 H Blood Pressure Pulse Oximetry Oxygen Flow Rate 03/12/23 08:45 03/12/23 08:49 03/12/23 10:43 Temperature 97.9 F Pulse Rate 59 L 60 Respiratory Rate 23 Blood Pressure 191/91 H Pulse Oximetry Oxygen Flow Rate 03/12/23 12:00 Temperature 97.6 F Pulse Rate 61 Respiratory Rate 18 Blood Pressure 195/90 H Pulse Oximetry 100 Oxygen Flow Rate 0 Oxygen Delivery Method Room Air Oxygen Flow Rate 0 Narrative Exam Narrative: alert sitting in chair with at bedside Const General: cooperative, healthy appearing, comfortable and well developed Resp Other: clear to auscultation bilaterally Cardio Other: regular rate and rhythm, S1/S2 GI Other: soft nontender active bowel sounds Neuro General: patient alert, patient awake, patient oriented x3, gait normal, moves all extremities, no focal motor deficits and CN's II-XI intact bilaterally Cognition: normal cognition Extrem General: full ROM and no pedal edema Psych Mental Status: mental status grossly normal Thought Process: normal Objective Labs 03/11/23 12:41 03/11/23 12:41 Labs: Laboratory Results - last 24 hr 03/11/23 03/11/23 03/11/23 14:08 15:00 15:16 Total Creatine Kinase Troponin I Urine Color Yellow Urine Appearance Clear Urine pH 6.0 Ur Specific [place] 1.010 Urine Protein Negative Urine Glucose (UA) Negative Urine Ketones Trace H Urine Occult Blood Negative Urine Nitrate Negative Urine Bilirubin Negative Urine Urobilinogen 0.2 Ur Leukocyte Esterase Negative Urine RBC None seen Urine WBC None seen Ur Squamous Epith Cells None seen Urine Bacteria None seen Ur Culture Indicated? Cult not indicated Nasal Screen MRSA (PCR) U Opiates 300ng/mL cut Negative Ur Oxycodone Screen Negative Urine Methadone Screen Negative Ur Barbiturates Screen Negative U Tricyclic Antidepress Negative Ur Phencyclidine Scrn Negative Ur Amphetamines Screen Negative U Methamphetamines Scrn Negative Ur MDMA Scrn (Ecstasy) Negative U Benzodiazepines Scrn Negative Urine Cocaine Screen Negative U Marijuana (THC) Screen Negative SARS-CoV-2 (PCR) Negative 03/11/23 03/12/23 22:45 04:30 Total Creatine Kinase 78 Troponin I 0.012 Urine Color Urine Appearance Urine pH Ur Specific [place] Urine Protein Urine Glucose (UA) Urine Ketones Urine Occult Blood Urine Nitrate Urine Bilirubin Urine Urobilinogen Ur Leukocyte Esterase Urine RBC Urine WBC Ur Squamous Epith Cells Urine Bacteria Ur Culture Indicated? Nasal Screen MRSA (PCR) Not detected U Opiates 300ng/mL cut Ur Oxycodone Screen Urine Methadone Screen Ur Barbiturates Screen U Tricyclic Antidepress Ur Phencyclidine Scrn Ur Amphetamines Screen U Methamphetamines Scrn Ur MDMA Scrn (Ecstasy) U Benzodiazepines Scrn Urine Cocaine Screen U Marijuana (THC) Screen SARS-CoV-2 (PCR) [facility] Medical History (Updated 03/11/23 @ 16:51 by Cristy Hicks, LOIS) Hypertension Surgical History (Updated 03/11/23 @ 16:51 by Cristy Hicks, LOIS) H/O heart artery stent Social History household members: spouse Smoking Status: Former smoker Discharge Assessment & Plan Assessment and Plan Assessment: #TIA/CVA imaging generally negative for acute processes. baseline functionality. Resume home meds. Echo obtained is generally wnl. #Hypertension asymptomatic but running high - will reevaluate discharge meds at follow up - consider avoiding thiazide in favor of amlodipine. Not BB or CCB. #Acute on chronic kidney disease, GFR 35 recheck at f/up appt, hydration encouraged #Questionable memory issues unclear if related to the event pt is new to our clinic, f/up as outpt Code status is full code time spent: 45 min Discharge Plan Discharge Plan Patient Disposition: Home Provider Discharge Comment: prescription for rosuvastatin 2.5 and asa 81 x2 sent to [facility] pharmacy using my clinic EMR Discharge orders & Medications Prescriptions: Continued nitroglycerin 0.3 mg tablet, sublingual See Rx Instructions .ROUTE .COMPLEX Rx Instructions: Place 1 tablet (0.3 mg) under the tongue every 5 (five) minutes if needed for chest pain. aspirin 81 mg Tablet 81 mg PO QAM losartan-hydrochlorothiazide 50-12.5 mg tablet 1 tab PO QAM Follow up/Referrals: Emmy Kiser MD [Primary Care Provider] - Visit Report/Discharge Packet Instructions: DI for Transient Global Amnesia Stand Alone Forms: Patient Portal/API, Stroke Signs & Symptoms, Naloxone Standing Order [facility] Discharge Data Primary Care Provider: Emmy Kiser Attending Provider: Emmy Kiser Admit Date/Time: 03/11/23 18:50 Discharges patient from system. Discharge Date/Time: 03/12/23 15:30 Quality VTE Deep Vein Thrombosis/Pulmonary Embolism Present on Admission: No
== END 2023-03-12 15:30 | disposition home or self-care (01) ==
LOC: ED 15:53 → AC 18:51 → ICU 22:33
PROVIDERS: Admitting Provider Family Medicine; Emergency Provider Emergency Medicine; PCP Family Medicine; Visit Provider Family Medicine
DX: G45.9 Transient cerebral ischemic attack, unspecified (principal); I10 Essential (primary) hypertension; E78.5 Hyperlipidemia, unspecified; I25.10 Atherosclerotic heart disease of native coronary artery without angina pectoris; Z87.891 Personal history of nicotine dependence
CPT/HCPCS: 36415; 70450; 70496; 70498; 70553; 80053; 80305; 80320; 81001; 82550; 84484; 85025; 85610; 85730; 87635; 87797; 93005; 93306; 96374; 97161; 99284; C9803; G0378; A9579; J0360; Q9967

== ENCOUNTER 2023-03-14 14:17 | Emergency (ER) | payer MEDICARE, SELFPAY ==
[2023-03-11 22:47] VITALS: BMI 21.7
[2023-03-14] VITALS (21 sets, daily range): BP systolic 120–198; BP diastolic 57–79; PULSE 49–60; RESP 12–38; TEMP 36; O2SAT 99–100; BMI 22.8
--- NOTE | 2023-03-14 14:30 | DI.RAD.S_ITS ---
PROCEDURE: XR CHEST 1V INDICATIONS: chest pain TECHNIQUE: One view of the chest was acquired. COMPARISON: [facility], CT, ABDOMEN/PELVIS WITH CONTRAST, 08/17/2013, 10:47. [facility], CR, XR CHEST 1V, 03/05/2023, 10:20. FINDINGS: Surgical changes and devices: None. Lungs and pleura: Lungs are clear. No pleural effusions or pneumothorax. 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 Heart size is normal. Bones and chest wall: No suspicious bony lesions. Overlying soft tissues appear unremarkable. IMPRESSION: Source of chest pain is not seen. 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 Dictated by: Nj Pitts M.D. on 03/14/2023 at 15:38 Approved by: Nj Pitts M.D. on 03/14/2023 at 15:42
[2023-03-14 15:19] LABS: Add Manual Diff / Slide Review NO; Basophils Absolute Auto 0 /uL (0-100); Basophils Percent Auto 0.4 % (0-2); Eosinophils Absolute Auto 200 /uL (0-450); Eosinophils Percent Auto 3.2 % (2-4); Hematocrit 40.2 % (41-53); Hemoglobin 14.6 g/dL (13.5-17.5); Lymphocytes Absolute Auto 800 /uL (1100-4500); Lymphocytes Percent Auto 10.9 % (25-40); Mean Corpuscular HGB Conc 36.3 % (30-36); Mean Corpuscular Hemoglobin 32.9 PG (26-34); Mean Corpuscular Volume 90.6 fL (80-100); Monocytes Absolute Auto 700 /uL (0-900); Monocytes Percent Auto 9.2 % (3-14); Neutrophils Absolute Auto 5600 /uL (1500-7000); Neutrophils Percent Auto 76.3 % (50-75); Platelet Count 152 X10^3/uL (150-400); Red Blood Cell Count 4.44 X10^6/uL (4.5-5.9); Red Cell Distribution Width 12.6 % (11.6-14.8); White Blood Cell Count 7.3 X10^3/uL (4.5-11.0)
[2023-03-14 15:24] LABS: Prothrombin Time 11.8 SECONDS (10.1-12.7)
[2023-03-14 15:27] LABS: PTT Partial Thromboplastin Tim 34 SECONDS (26-36)
[2023-03-14 15:29] LABS: Alanine Aminotransferase 21 IU/L (<50); Albumin 4.7 g/dL (3.5-5.0); Albumin Globulin Ratio 1.7 (1.0-2.8); Alkaline Phosphatase 106 U/L (38-126); Aspartate Aminotransferase 31 IU/L (17-59); BUN Creatinine Ratio 23.2 (6-22); Bilirubin Total 0.7 mg/dL (0.2-1.3); Blood Urea Nitrogen 45 mg/dL (9-20); Calcium 9.4 mg/dL (8.4-10.2); Carbon Dioxide 32 mmol/L (22-32); Chloride 95 mmol/L (98-107); Creatine Kinase 62 U/L (55-170); Estimated Glomerular Filt Rate 34 mL/min (>60); Globulin 2.8 g/dL (1.7-4.1); Glucose 91 mg/dL (80-110); HEMOLYSIS < 15 (0-50); Lipase 765 U/L (23-300); Magnesium 2.9 mg/dL (1.6-2.3); Potassium 3.7 mmol/L (3.4-5.1); Sodium 136 mmol/L (137-145); Total Protein 7.5 g/dL (6.3-8.2)
[2023-03-14 15:40] LABS: Troponin I < 0.012 ng/mL (0.01-0.034)
--- NOTE | 2023-03-14 18:42 | ED.GENADULT ---
HPI - General Adult General Chief complaint: Syncope Stated complaint: BP low/syncope Time Seen by Provider: 03/14/23 18:05 Source: patient Mode of arrival: Ambulatory History of Present Illness HPI narrative: 83-year-old gentleman with a history of coronary artery disease with stable angina, hypertension who was admitted to the hospital 3 days ago with TIA workup. He reportedly had gone out for a walk and then his found him slumped over, she gave him nitroglycerin and 911 was called medics found him hypotensive. Workup included head CT, CTA of the head neck, brain MRI and echocardiogram all of which showed no acute findings and an ejection fraction in the 55-65% range. It sounds like he had a similar episode, sitting at the table and slumped over found unresponsive medics found him hypotensive on arrival and his brought back to the emergency department for further evaluation. describes recent diagnosis of hypertension started on losartan 50/hydrochlorothiazide 12.5. Since beginning this medication he is complaining of dramatically decreased energy increased fatigue global weakness. She has documented blood pressures that show systolic numbers ranging from the 103 to 135 range. Certainly nothing close to the numbers that were seeing in the emergency department or with his recent hospitalization. She is not checking any numbers prior to bed. He notes that he has BPH and since starting the medication has been voiding even more but has been trying to keep up with overall fluid. He and his both describe episodes of dyspnea walking up a hill they typically walk up, resolving if he simply rest and this has gone away since starting the blood pressure medication. There has been no recurrent chest pain, headaches, anything resembling seizures or seizure-like activity. Patient is very clear that he has no sensation of palpitations prior to these 2 episodes of syncope. The notes with each of these episodes he is had a slow slumping type syncopal episode better once he lays down, took 3 hours to resolve completely with his last episode and with events today has taken approximately 2 hours to return to his baseline. Related Data Home Medications Medication Instructions Recorded Confirmed aspirin 81 mg tablet 81 mg PO QAM 03/11/23 03/11/23 losartan 50 mg-hydrochlorothiazide 1 tab PO QAM 03/11/23 03/11/23 12.5 mg tablet nitroglycerin 0.3 mg sublingual See Rx Instructions .Route .COMPLEX 03/11/23 03/11/23 tablet Previous Rx's Medication Instructions Recorded amlodipine 2.5 mg tablet 2.5 mg PO BEDTIME #30 tabs 03/14/23 Allergies Allergy/AdvReac Type Severity Reaction Status Date / Time No Known Allergies Allergy Unknown Verified 03/14/23 14:26 Review of Systems Review of Systems Narrative: Pertinent positive and negative findings as per HPI Patient History Medical History (Updated 03/14/23 @ 19:23 by Maude Monae MD) Coronary artery disease Hypertension Surgical History (Updated 03/11/23 @ 16:51 by Cristy Hicks RN) H/O heart artery stent Social History household members: spouse Smoking Status: Former smoker Smoking Status: Former smoker alcohol intake frequency: 0-2 drinks per day Substance Use Type: does not use Exam Initial Vital Signs Initial Vital Signs: Vital Signs Temperature 96.8 F L 03/14/23 14:24 Pulse Rate 58 L 03/14/23 14:24 Respiratory Rate 15 03/14/23 14:24 Blood Pressure 149/66 H 03/14/23 14:24 Pulse Oximetry 100 03/14/23 14:24 Oxygen Delivery Method Room Air 03/14/23 14:24 Course Orders Ordered: ED Orders 03/14/23 14:30 XR chest 1V Stat EKG-12 Lead Stat 03/14/23 15:07 Complete Blood Count AUTO DIFF Stat Comprehensive Metabolic Panel Stat Lipase Stat Magnesium Stat PTT Partial Thromboplastin Ezekiel Stat Prothrombin Time INR Stat Troponin & CK Cardiac Panel Stat Vital Signs Vital signs: Vital Signs - 8 hr 03/14/23 14:24 03/14/23 14:47 03/14/23 14:50 Temperature 96.8 F L Pulse Rate 58 L 54 L 58 L Pulse Rate [Orthostatic Lying] Pulse Rate [Orthostatic Sitting] Pulse Rate [Orthostatic Standing] Respiratory Rate 15 Blood Pressure 149/66 H Blood Pressure [Orthostatic Lying] Blood Pressure [Orthostatic Sitting] Blood Pressure [Orthostatic Standing] Pulse Oximetry 100 100 100 Oxygen Delivery Method Room Air 03/14/23 14:50 03/14/23 14:51 03/14/23 14:51 Temperature Pulse Rate 54 L Pulse Rate [Orthostatic Lying] Pulse Rate [Orthostatic Sitting] Pulse Rate [Orthostatic Standing] Respiratory Rate Blood Pressure 198/79 H 163/70 H Blood Pressure [Orthostatic Lying] Blood Pressure [Orthostatic Sitting] Blood Pressure [Orthostatic Standing] Pulse Oximetry 100 Oxygen Delivery Method 03/14/23 15:00 03/14/23 15:00 03/14/23 15:15 Temperature Pulse Rate 52 L Pulse Rate [Orthostatic Lying] Pulse Rate [Orthostatic Sitting] Pulse Rate [Orthostatic Standing] Respiratory Rate Blood Pressure 138/57 L 135/63 Blood Pressure [Orthostatic Lying] Blood Pressure [Orthostatic Sitting] Blood Pressure [Orthostatic Standing] Pulse Oximetry 100 Oxygen Delivery Method 03/14/23 15:15 03/14/23 15:30 03/14/23 15:30 Temperature Pulse Rate 49 L 52 L Pulse Rate [Orthostatic Lying] Pulse Rate [Orthostatic Sitting] Pulse Rate [Orthostatic Standing] Respiratory Rate 12 19 Blood Pressure 137/63 Blood Pressure [Orthostatic Lying] Blood Pressure [Orthostatic Sitting] Blood Pressure [Orthostatic Standing] Pulse Oximetry 100 100 Oxygen Delivery Method 03/14/23 15:45 03/14/23 15:45 03/14/23 16:00 Temperature Pulse Rate 51 L Pulse Rate [Orthostatic Lying] Pulse Rate [Orthostatic Sitting] Pulse Rate [Orthostatic Standing] Respiratory Rate 15 Blood Pressure 120/59 L 169/72 H Blood Pressure [Orthostatic Lying] Blood Pressure [Orthostatic Sitting] Blood Pressure [Orthostatic Standing] Pulse Oximetry 100 Oxygen Delivery Method 03/14/23 16:00 03/14/23 16:41 03/14/23 16:15 Temperature Pulse Rate 56 L Pulse Rate [Orthostatic Lying] 60 Pulse Rate [Orthostatic Sitting] 56 L Pulse Rate [Orthostatic Standing] 52 L Respiratory Rate 21 Blood Pressure 149/67 H Blood Pressure [Orthostatic Lying] 164/72 H Blood Pressure [Orthostatic Sitting] 149/69 H Blood Pressure [Orthostatic Standing] 150/65 H Pulse Oximetry 99 Oxygen Delivery Method Room Air 03/14/23 16:15 03/14/23 16:30 03/14/23 16:30 Temperature Pulse Rate 56 L 52 L Pulse Rate [Orthostatic Lying] Pulse Rate [Orthostatic Sitting] Pulse Rate [Orthostatic Standing] Respiratory Rate 13 14 Blood Pressure 146/65 H Blood Pressure [Orthostatic Lying] Blood Pressure [Orthostatic Sitting] Blood Pressure [Orthostatic Standing] Pulse Oximetry 100 99 Oxygen Delivery Method 03/14/23 16:36 03/14/23 16:36 03/14/23 16:38 Temperature Pulse Rate 56 L Pulse Rate [Orthostatic Lying] Pulse Rate [Orthostatic Sitting] Pulse Rate [Orthostatic Standing] Respiratory Rate 19 Blood Pressure 164/72 H 149/69 H Blood Pressure [Orthostatic Lying] Blood Pressure [Orthostatic Sitting] Blood Pressure [Orthostatic Standing] Pulse Oximetry 100 Oxygen Delivery Method 03/14/23 16:38 03/14/23 16:39 03/14/23 16:39 Temperature Pulse Rate 58 L 53 L Pulse Rate [Orthostatic Lying] Pulse Rate [Orthostatic Sitting] Pulse Rate [Orthostatic Standing] Respiratory Rate 38 H 24 Blood Pressure 150/65 H Blood Pressure [Orthostatic Lying] Blood Pressure [Orthostatic Sitting] Blood Pressure [Orthostatic Standing] Pulse Oximetry Oxygen Delivery Method 03/14/23 16:45 03/14/23 16:45 03/14/23 16:00 Temperature Pulse Rate 55 L 56 L Pulse Rate [Orthostatic Lying] Pulse Rate [Orthostatic Sitting] Pulse Rate [Orthostatic Standing] Respiratory Rate 17 21 Blood Pressure 157/72 H 169/72 H Blood Pressure [Orthostatic Lying] Blood Pressure [Orthostatic Sitting] Blood Pressure [Orthostatic Standing] Pulse Oximetry 100 99 Oxygen Delivery Method Room Air 03/14/23 16:30 03/14/23 17:00 03/14/23 17:30 Temperature Pulse Rate 52 L 52 L Pulse Rate [Orthostatic Lying] Pulse Rate [Orthostatic Sitting] Pulse Rate [Orthostatic Standing] Respiratory Rate 14 15 Blood Pressure 146/65 H 168/75 H 162/74 H Blood Pressure [Orthostatic Lying] Blood Pressure [Orthostatic Sitting] Blood Pressure [Orthostatic Standing] Pulse Oximetry 99 100 Oxygen Delivery Method 03/14/23 18:00 03/14/23 18:30 Temperature Pulse Rate 51 L Pulse Rate [Orthostatic Lying] Pulse Rate [Orthostatic Sitting] Pulse Rate [Orthostatic Standing] Respiratory Rate 12 Blood Pressure 176/73 H 164/77 H Blood Pressure [Orthostatic Lying] Blood Pressure [Orthostatic Sitting] Blood Pressure [Orthostatic Standing] Pulse Oximetry 100 Oxygen Delivery Method Medical Decision Making Lab Data 03/14/23 15:07 03/14/23 15:07 Labs: Lab Results 07/21/23 07/21/23 07/21/23 Range/Units 15:07 15:07 15:07 WBC 7.3 (4.5-11.0) X10^3/uL RBC 4.44 L (4.5-5.9) X10^6/uL Hgb 14.6 (13.5-17.5) g/dL Hct 40.2 L (41-53) % MCV 90.6 (80-100) fL MCH 32.9 (26-34) PG MCHC 36.3 H (30-36) % RDW 12.6 (11.6-14.8) % Plt Count 152 (150-400) X10^3/uL Neut % (Auto) 76.3 H (50-75) % Lymph % (Auto) 10.9 L (25-40) % [place] % (Auto) 9.2 (3-14) % Eos % (Auto) 3.2 (2-4) % Baso % (Auto) 0.4 (0-2) % Neut # (Auto) 5600 (7633-7861) /uL Lymph # (Auto) 800 L (8767-6236) /uL [place] # (Auto) 700 (0-900) /uL Eos # (Auto) 200 (0-450) /uL Baso # (Auto) 0 (0-100) /uL PT 11.8 (10.1-12.7) SECONDS INR 1.0 (0.9-1.3) APTT 34 (26-36) SECONDS Sodium 136 L (137-145) mmol/L Potassium 3.7 (3.4-5.1) mmol/L Chloride 95 L (98-107) mmol/L Carbon Dioxide 32 (22-32) mmol/L BUN 45 H (9-20) mg/dL Creatinine 1.94 H (0.66-1.25) mg/dL Estimated GFR 34 L (>60) mL/min BUN/Creatinine Ratio 23.2 H (6-22) Glucose 91 (80-110) mg/dL Calcium 9.4 (8.4-10.2) mg/dL Magnesium 2.9 H (1.6-2.3) mg/dL Total Bilirubin 0.7 (0.2-1.3) mg/dL AST 31 (17-59) IU/L ALT 21 (<50) IU/L Alkaline Phosphatase 106 (38-126) U/L Total Creatine Kinase 62 (55-170) U/L Troponin I < 0.012 (0.01-0.034) ng/mL Total Protein 7.5 (6.3-8.2) g/dL Albumin 4.7 (3.5-5.0) g/dL Globulin 2.8 (1.7-4.1) g/dL Albumin/Globulin Ratio 1.7 (1.0-2.8) Lipase 765 H D (23-300) U/L MDM Narrative Medical decision making narrative: CC: Syncope, uncertain prognosis acute issue Complicating co-morbidities: Coronary artery disease, stable angina, hypertension. Data collected from: patient, Social determinants of health that may influence the patients condition: Patient is full code status Medical records reviewed: ER visit for chest pain on March 05, hospital admission on March 11 for TIA (please see HPI for summary of visits). In reviewing recent prior hospital notes he has been consistently hypertensive. Differential considered: Exam documented above, pertinent findings include: Lab Test results independently reviewed as above. Pertinent findings: CBC is reassuring with no evidence of leukocytosis or significant anemia Chemistries show chronic stable acute kidney injury with creatinine at 1.94 BUN of 45. Troponin is nondetectable Lipase is moderately elevated at 765 Independently reviewed EKG sinus rhythm at a rate of 60, no acute ischemic changes, LVH findings similar to comparison EKGs Imaging studies independently reviewed: Recent chest x-ray, head CT, CT head and neck, brain MRI and chest x-ray from today are all reviewed. None of these imaging studies reveal any specific abnormalities and chest x-ray from today is unremarkable Discussion: 83-year-old gentleman recently started on blood pressure medications after an episode of exertional chest pain. The exertional chest pain did resolve however he has since had significant fatigue, general malaise and dramatically decreased energy. He has now had 2 syncopal episodes that sound like they are hypotensive related. Describes no palpitations, prior he simply slumps forward medics have found significant hypotension on initial evaluation and he resolves with fluid resuscitation. He has had echocardiogram, advanced brain imaging and no alternative explanations have been identified. There is no evidence of infection, seizure is far less likely and certainly does not sound like cardiac arrhythmia. In discussion with patient and his and with shared decision-making we opted to not rehospitalize him today however we are going to change his blood pressure medication. He last took the losartan hydrochlorothiazide this morning. I am going to ask him to skip his dose tomorrow morning and start him on amlodipine 2.5 mg at bedtime. I have asked them to check blood pressures at multiple times throughout the day to document numbers for primary care follow-up. They will need to see their primary care doctor in about a week to review blood pressure findings. I have asked him to keep track of any exertional shortness of breath or chest pain as well as how he overall is feeling with a blood pressure medication. Patient and were quite pleased with this plan and are safe for discharge Discharge Plan Departure Patient Disposition: Home Clinical Impression: Syncope, Acute hypotension Hypertension Qualifiers: Hypertension type: primary hypertension Qualified Code(s): I10 - Essential (primary) hypertension Instructions: DI for Syncope in Adults (Fainting) Activity Restrictions/Additional Instructions: Thank you for coming in today I am a bit concerned that you now have had 2 episodes where you are passing out and found to have significantly low blood pressure. The blood pressure numbers that you are documenting from home seem absolutely appropriate. The blood pressures we are documenting later in the afternoons and evening from your recent hospitalization and ER visit are showing significantly elevated numbers. I do not think that this is an episode of acute heart attack, stroke or TIA, infection, seizure, significant dehydration, electrolyte abnormality. I suspect that it is related to blood pressure and we discussed some options to try to see if we could improve your blood pressure and prevent you from continuing to pass out and having episodes of low blood pressure Please stop your current blood pressure medication. Please start amlodipine 2.5 mg prior to bed, 1st dose tomorrow on March 15. I have sent a prescription for this to [facility] If you are having active chest pain, the nitroglycerin that you have at home is reasonable to use. Please do not use it for any other complaints including syncope. Please check blood pressures at different times during the day to simply document the numbers and take that documentation in when you schedule your appointment follow-up with your primary care doctor in a week. If you find that you are getting worse or develop any new symptoms, please feel free to return to the emergency department for further evaluation. Prescriptions: New amlodipine 2.5 mg tablet 2.5 mg PO BEDTIME Qty: 30 0RF No Action nitroglycerin 0.3 mg tablet, sublingual See Rx Instructions .ROUTE .COMPLEX Rx Instructions: Place 1 tablet (0.3 mg) under the tongue every 5 (five) minutes if needed for chest pain. aspirin 81 mg Tablet 81 mg PO QAM losartan-hydrochlorothiazide 50-12.5 mg tablet 1 tab PO QAM Referrals: Emmy Kiser MD [Primary Care Provider] - Stand Alone Forms: Patient Portal/API
== END 2023-03-14 19:40 | disposition home or self-care (01) ==
PROVIDERS: Emergency Medicine; Emergency Provider Emergency Medicine; PCP Family Medicine
DX: R55 Syncope and collapse (principal); I95.9 Hypotension, unspecified; I10 Essential (primary) hypertension; R07.9 Chest pain, unspecified
CPT/HCPCS: 36415; 71045; 80053; 82550; 83690; 83735; 84484; 85025; 85610; 85730; 93005; 99283; 99284

== ENCOUNTER → 2023-03-19 10:14 | Outpatient (CLI) | payer MEDICARE, SELFPAY ==
[2023-03-11 22:47] VITALS: BMI 21.7
--- NOTE | 2023-03-19 | DI.NM.S_ITS ---
PROCEDURE: NM CORY PERF SPECT REST & STR Rest and exercise myocardial perfusion SPECT with gated imaging and ejection fraction RADIOPHARMACEUTICAL: 26.1 mCi Tc-99m sestamibi IV at rest and 25.9 mCi Tc-99m sestamibi IV at peak exercise. A two day-protocol was performed. INDICATIONS: Atherosclerotic heart disease of [place] coronary artery with TECHNIQUE: Radiopharmaceutical was injected at peak stress test, and also at rest. SPECT images were obtained. SPECT myocardial perfusion images were displayed in short axis, horizontal long axis, and vertical long axis views. Gated images were reviewed using [employer] software. COMPARISON: None. CARDIAC STRESS: A standard Prabhakar treadmill exercise tolerance test was performed by the patient under the supervision of an attending staff. The patient exercised for 5 minutes and 2 seconds; functional aerobic impairment (CRISELDA) is +12%. Hemodynamic data: There is normal blood pressure and heart rate response to exercise stress. Patient achieved 89% of maximum predicted heart rate at peak exercise. Symptoms: Patient had 10/10 chest pain with exercise that resolved in recovery. EKG: Mild to moderate horizontal ST depressions in the inferior and anterolateral leads during recovery suggesting ischemia; PACs noted during recovery. FINDINGS: Raw data: There is good myocardial labeling by radiotracer. No significant motion artifacts. Duxp-ub-wgpal ratio is 0.29 (normal is less than 0.38 for sestamibi tracer, and less than 0.50 for thallium tracer). Left ventricle function: Gated images demonstrate normal left ventricle wall thickening. No segmental wall motion abnormality. No transient ischemic dilation; TID is 1.07 (normal less than 1.3). The left ventricle resting end-diastolic volume is 93 mL. Left ventricle stress ejection fraction is 73%; normal values are above 45%. Myocardial perfusion: There is a moderately intense reversible defect in the mid to distal anterior wall consistent with ischemia. No definite prior infarction. IMPRESSION: Abnormal treadmill nuclear stress test consistent with ischemia. 1) There is a moderately intense reversible defect in the mid to distal anterior wall consistent with ischemia. No definite prior infarction. 2) Normal left ventricular size, wall motion, and systolic function (EF post stress 73%). 3) Mild to moderate horizontal ST depressions in the inferior and anterolateral leads during recovery suggesting ischemia. 4) Angina during exercise that resolved with recovery. 5) Mildly reduced exercise tolerance (7.0METs, CRISELDA +12%). Target heart rate achieved. 6) Hypertension at rest (BP 152/76mmHg). Appropriate BP response to exercise. Dictated by: Christian Cartagena MD on 03/20/2023 at 13:08 Approved by: Christian Cartagena MD on 03/20/2023 at 13:14
== END ==
PROVIDERS: PCP Family Medicine; Referring Provider Internal Medicine Cardiovascular Disease; Visit Provider Internal Medicine Cardiovascular Disease
DX: I25.10 Atherosclerotic heart disease of native coronary artery without angina pectoris (principal); R94.39 Abnormal result of other cardiovascular function study
CPT/HCPCS: 78452; 93017; A9502

== ENCOUNTER → 2023-03-25 12:17 | Outpatient (CLI) | payer MEDICARE, SELFPAY ==
[2023-03-11 22:47] VITALS: BMI 21.7
[2023-03-25 13:51] LABS: Add Manual Diff / Slide Review NO; Basophils Absolute Auto 0 /uL (0-100); Basophils Percent Auto 0.9 % (0-2); Eosinophils Absolute Auto 200 /uL (0-450); Eosinophils Percent Auto 3.9 % (2-4); Hematocrit 33.5 % (41-53); Hemoglobin 12.1 g/dL (13.5-17.5); Lymphocytes Absolute Auto 1100 /uL (1100-4500); Mean Corpuscular Hemoglobin 32.9 PG (26-34); Mean Corpuscular Volume 91.5 fL (80-100); Monocytes Absolute Auto 600 /uL (0-900); Monocytes Percent Auto 11.3 % (3-14); Neutrophils Absolute Auto 3100 /uL (1500-7000); Neutrophils Percent Auto 61.9 % (50-75); Platelet Count 145 X10^3/uL (150-400); Red Blood Cell Count 3.66 X10^6/uL (4.5-5.9); Red Cell Distribution Width 12.4 % (11.6-14.8)
[2023-03-25 15:36] LABS: BUN Creatinine Ratio 22.4 (6-22); Blood Urea Nitrogen 35 mg/dL (9-20); Calcium 8.8 mg/dL (8.4-10.2); Carbon Dioxide 31 mmol/L (22-32); Chloride 102 mmol/L (98-107); Estimated Glomerular Filt Rate 44 mL/min (>60); Glucose 50 mg/dL (80-110); HEMOLYSIS < 15 (0-50); Potassium 3.9 mmol/L (3.4-5.1); Sodium 139 mmol/L (137-145)
== END ==
PROVIDERS: PCP Family Medicine; Referring Provider Internal Medicine Cardiovascular Disease; Visit Provider Internal Medicine Cardiovascular Disease
DX: I25.10 Atherosclerotic heart disease of native coronary artery without angina pectoris (principal)
CPT/HCPCS: 36415; 80048; 85025

== ENCOUNTER → 2023-04-23 11:15 | Outpatient (CLI) | payer MEDICARE, SELFPAY ==
[2023-03-11 22:47] VITALS: BMI 21.7
--- NOTE | 2023-04-23 | DI.US.S_ITS ---
PROCEDURE: US SCROTUM INDICATIONS: RIGHT SCROTAL LUMP TECHNIQUE: Real-time scanning was performed of the scrotum and testicles, with image documentation. Color and pulse Doppler interrogation was performed of both testicles. COMPARISON: None. FINDINGS: Right: Testicle is normal in size at 4.3 x 3.9 x 2.7 cm, and homogenous in echotexture. Heterogeneous echotexture within right epididymis is noted. 1.5 x 1.9 x 1.2 cm heterogeneously hyperechoic and solid-appearing structure is noted within left epididymal tail and show internal hypervascularity. Calcification within right epididymal body is seen. No hydrocele or varicoceles. Overlying scrotal skin is normal in thickness. Left: Testicle is normal in size at 4.2 x 2.7 x 2.7 cm, and homogeneous in echotexture. Epididymis is normal in overall size and morphology. Multiple left epididymal head cysts are seen measures 2 and 5 mm in size. Small to moderate left-sided hydrocele is seen with internal low level echo measures up to 8 x 3.8 x 1.6 cm in size. No varicoceles. Overlying scrotal skin is normal in thickness. Doppler: Color and pulse Doppler demonstrate normal and symmetric arterial flow in both testicles. IMPRESSION: 1. 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 2. Normal appearing bilateral testes. 3. Slightly complex left hydrocele as above. Tiny left epididymal head cysts. Dictated by: Nathaniel Pozo M.D. on 04/23/2023 at 12:49 Approved by: Nathaniel Pozo M.D. on 04/23/2023 at 12:53
== END ==
PROVIDERS: PCP Family Medicine; Referring Provider Family Medicine; Visit Provider Family Medicine
DX: N50.89 Other specified disorders of the male genital organs (principal); N43.3 Hydrocele, unspecified
CPT/HCPCS: 76870

== ENCOUNTER → 2023-07-30 12:09 | Outpatient (CLI) | payer MEDICARE, SELFPAY ==
[2023-03-11 22:47] VITALS: BMI 21.7
--- NOTE | 2023-07-30 | DI.US.S_ITS ---
PROCEDURE: US SCROTUM INDICATIONS: SCROTAL MASS TECHNIQUE: Real-time scanning was performed of the scrotum and testicles, with image documentation. Color and pulse Doppler interrogation was performed of both testicles. COMPARISON: None. FINDINGS: Right: Testicle is normal in size at 3.8 x 2.9 x 4.2 cm, and homogenous in echotexture. Epididymis is normal in overall size and morphology. Question minimal varicocele. No hydrocele. Overlying scrotal skin is normal in thickness. 0.8 cm epididymal cyst. Left: Testicle is normal in size at 4.0 x 3.0 x 3.9 cm, and homogeneous in echotexture. Epididymis is normal in overall size and morphology. Hydrocele. No varicocele. Overlying scrotal skin is normal in thickness. 0.4 cm epididymal cyst. Doppler: Color and pulse Doppler demonstrate normal and symmetric arterial flow in both testicles. A fat containing right inguinal hernia is noted. There is a 0.9 cm defect in the abdominal wall. IMPRESSION: 1. Small fat containing right inguinal hernia. 2. No significant findings on scrotal ultrasound. No testicular mass, testicular torsion, orchitis, or epididymitis. Dictated by: Juan Jose Fong M.D. on 07/30/2023 at 18:51 Approved by: Juan Jose Fong M.D. on 07/30/2023 at 18:54
== END ==
PROVIDERS: PCP Family Medicine; Referring Provider Family Medicine; Visit Provider Family Medicine
DX: N50.89 Other specified disorders of the male genital organs; K40.40 Unilateral inguinal hernia, with gangrene, not specified as recurrent; N50.3 Cyst of epididymis; N43.3 Hydrocele, unspecified
CPT/HCPCS: 76870; 93976

== ENCOUNTER → 2023-09-15 11:47 | Outpatient (CLI) | payer MEDICARE, SELFPAY ==
[2023-03-11 22:47] VITALS: BMI 21.7
--- NOTE | 2023-09-15 11:51 | DI.US.S_ITS ---
PROCEDURE: US SCROTUM INDICATIONS: SCROTAL MASS TECHNIQUE: Real-time scanning was performed of the scrotum and testicles, with image documentation. Color and pulse Doppler interrogation was performed of both testicles. COMPARISON: [facility], , US SCROTUM, 07/30/2023, 12:39. FINDINGS: Right: Testicle is normal in size at 5.7 x 2.3 x 3.5 cm, and homogenous in echotexture. Epididymis is normal in overall size and morphology. No hydrocele or varicoceles. Overlying scrotal skin is normal in thickness. 7 mm epididymal cyst Left: Testicle is normal in size at 4.1 x 3.2 x 3.7 cm, and homogeneous in echotexture. Epididymis is normal in overall size and morphology. Small hydrocele and varicocele noted Overlying scrotal skin is normal in thickness. Doppler: Color and pulse Doppler demonstrate normal and symmetric arterial flow in both testicles. IMPRESSION: No evidence of testicular mass lesion or torsion. Small right epididymal cyst and left-sided hydrocele/varicocele Approved by: Josse Shay M.D. on 09/15/2023 at 18:28
== END ==
LOC: US 11:50
PROVIDERS: PCP Family Medicine; Referring Provider Family Medicine; Visit Provider Family Medicine
DX: N50.89 Other specified disorders of the male genital organs (principal); N50.3 Cyst of epididymis; N43.3 Hydrocele, unspecified
CPT/HCPCS: 76870

== ENCOUNTER 2023-09-19 11:24 | Day surgery (SDC) | payer MEDICARE, SELFPAY ==
[2023-03-11 22:47] VITALS: BMI 21.7
[2023-09-16 12:20] VITALS: BMI 23.1
--- NOTE | 2023-09-19 08:30 | PM.PREOP ---
Pre-operative Note Interval Note History & Physical reviewed/Exam performed by Physician: Yes Changes to H&P: No
[2023-09-19 12:08] VITALS: BP 156/68; PULSE 67; RESP 16; TEMP 36.1; O2SAT 98; BMI 23.1
[2023-09-19] MEDS: LACTATED RINGERS 1,000 ML 42 ML IV (12:20)
[2023-09-19] MEDS: CEFAZOLIN VIAL 2 GM in SODIUM CHLORIDE 0.9% 100 ML IV (13:18)
--- NOTE | 2023-09-19 13:23 | SUR.OPER ---
Supine on padded OR bed, head on pillow, arms secured on padded arm boards at <90 degrees abduction, legs uncrossed, safety belt at thigh, tape over blanket over lower legs.
[2023-09-19] MEDS: BUPIVACAINE 0.25% (PF) VIAL 30 ML INJ (13:29)
[2023-09-19] MEDS: ACETAMINOPHEN IV 1,000 MG/100 ML VIAL 400 MG IV (13:30)
[2023-09-19 14:15] VITALS: BP 151/73; PULSE 68; RESP 16; TEMP 36.2; O2SAT 98
[2023-09-19 14:20] VITALS: BP 144/67; PULSE 59; RESP 16; O2SAT 98
--- NOTE | 2023-09-19 14:20 | PM.OP.1 ---
Operative Date/Time/Diagnoses Date of procedure: 09/19/23 Time of procedure: 14:20 Pre-op diagnosis: Right inguinal hernia Post-op diagnosis: same Procedure & Clinicians Procedure: Open right inguinal hernia repair with mesh Same procedure as scheduled: Yes Indications: Symptomatic reducible right inguinal hernia Surgeon: Timbo Menezes Yes if Unassisted: Yes Anesthesia Type: General Operative Notes Findings: Small indirect defect Estimated Blood Loss (mL): 10 Procedure in detail: The patient was placed supine on the table and bilateral lower extremity compression devices were applied. Anesthesia was induced they were intubated with an LMA and received Ancef. A time-out was performed. They were prepped and draped in sterile fashion. The right external inguinal ring and the anterior superior iliac crest were identified and marked. 1 finger breath above the inguinal ligament the skin was infiltrated with 0.25% bupivacaine. The skin incision was made, the subcutaneous tissues were divided with electrocautery exposing the external oblique aponeurosis which was then opened along the direction of its fibers. Using blunt dissection the internal oblique aporneurosis was from the external oblique upper leaflet. The cord was carefully dissected away from the inguinal canal adjacent to the pubic tubercle. The cord was encircled with a [place] drain. No direct floor defect was identified. The cremasteric fibers surrounding the cord were divided adjacent to the internal ring. The vas deferens and the testicular vessels were preserved and protected. The cord contents were carefully explored. There was a small indirect hernia on the anterior medial aspect of the cord which was skeletonized away from the vas deferens and testicular blood supply. The indirect hernia was skeletonized back to the internal ring and reduced spontaneously into the abdomen. A 7x 15 cm lightweight Bard Pro Loop hernia mesh was anchored to the insertion of the rectus muscle at the pubic tubercle such that there was approximately 2 cm of tubercle overlap with Ethibond. The inferior edge of the mesh was secured to the shelving edge of the inguinal ligament using Ethibond. Interrupted 3 0 Vicryl suture was used to anchor the superior aspect of the mesh to the conjoined tendon in several places. The tails were then reapproximated loosely around the spermatic cord. The tails of the mesh were then tucked under the external oblique aponeurosis. The repair was checked for hemostasis. The wound was irrigated with sterile saline. The external oblique aponeurosis was reapproximated in a running fashion using 3 0 Vicryl. The subcutaneous tissues were reapproximated with 3 0 Vicryl skin closed with 4 0 Monocryl followed by the application of Dermabond. At the end of the operation I ensured that both testicles were within the scrotum. The sponge instrument count at the end operation was correct. The patient emerged from anesthesia was extubated and transferred to the postoperative care unit in stable condition. A total of 30 ml of of 0.25% bupivicaine was used to infiltrate the skin. Complications: none Post-operative Condition: stable Disposition: same day surgery
[2023-09-19 14:25] VITALS: BP 144/68; PULSE 88; RESP 16; O2SAT 98
[2023-09-19 14:30] VITALS: BP 145/71; PULSE 66; RESP 16; TEMP 36.2; O2SAT 98
[2023-09-19 15:18] VITALS: BP 152/68; PULSE 64; RESP 16; O2SAT 97
== END 2023-09-19 15:25 | disposition home or self-care (01) ==
PROVIDERS: PCP Family Medicine; Referring Provider Surgery; Visit Provider Surgery
PROC: (CPT 49505; principal; 2023-09-19 12:30)
DX: K40.90 Unilateral inguinal hernia, without obstruction or gangrene, not specified as recurrent (principal); I10 Essential (primary) hypertension; I25.10 Atherosclerotic heart disease of native coronary artery without angina pectoris; Z95.5 Presence of coronary angioplasty implant and graft; Z87.891 Personal history of nicotine dependence
CPT/HCPCS: 49505; J0136; J0330; J0690; J1100; J2405; J3010

== ENCOUNTER → 2023-10-13 10:02 | Outpatient (CLI) | payer MEDICARE, SELFPAY ==
[2023-03-11 22:47] VITALS: BMI 21.7
[2023-10-13 11:34] LABS: Add Manual Diff / Slide Review NO; Basophils Absolute Auto 0 /uL (0-100); Basophils Percent Auto 0.6 % (0-2); Eosinophils Absolute Auto 100 /uL (0-450); Eosinophils Percent Auto 3.3 % (2-4); Hematocrit 35.6 % (41-53); Hemoglobin 12.7 g/dL (13.5-17.5); Lymphocytes Absolute Auto 800 /uL (1100-4500); Lymphocytes Percent Auto 20.3 % (25-40); Mean Corpuscular HGB Conc 35.8 % (30-36); Mean Corpuscular Hemoglobin 32.4 PG (26-34); Mean Corpuscular Volume 90.6 fL (80-100); Monocytes Absolute Auto 400 /uL (0-900); Neutrophils Absolute Auto 2700 /uL (1500-7000); Neutrophils Percent Auto 65.8 % (50-75); Platelet Count 132 X10^3/uL (150-400); Red Blood Cell Count 3.93 X10^6/uL (4.5-5.9); Red Cell Distribution Width 13.2 % (11.6-14.8); White Blood Cell Count 4.1 X10^3/uL (4.5-11.0)
[2023-10-13 11:39] LABS: Cholesterol 106 mg/dL (140-199); HDL Cholesterol 35 mg/dL (40-60); LDL Cholesterol Calculated 56 mg/dL (<100); Triglycerides 74 mg/dL (35-150)
== END ==
PROVIDERS: PCP Family Medicine; Referring Provider Internal Medicine Cardiovascular Disease; Visit Provider Internal Medicine Cardiovascular Disease
DX: E78.5 Hyperlipidemia, unspecified (principal); I25.10 Atherosclerotic heart disease of native coronary artery without angina pectoris
CPT/HCPCS: 36415; 80061; 85025

== ENCOUNTER → 2024-03-08 10:07 | Outpatient (CLI) | payer MEDICARE, SELFPAY ==
[2023-03-11 22:47] VITALS: BMI 21.7
--- NOTE | 2024-03-08 | DI.US.S_ITS ---
PROCEDURE: US SCROTUM INDICATIONS: Other specified disorders of the male genital organs TECHNIQUE: Real-time scanning was performed of the scrotum and testicles, with image documentation. Color and pulse Doppler interrogation was performed of both testicles. COMPARISON: [facility], , US SCROTUM, 09/15/2023, 12:11. FINDINGS: Right: Testicle is normal in size at 5.0 x 2.3 x 3.5 cm, and homogenous in echotexture. Epididymis is normal in overall size and morphology. No hydrocele or varicoceles. Overlying scrotal skin is normal in thickness. Left: Testicle is normal in size at the 5.1 x 2.0 x 3.7 cm, and homogeneous in echotexture. Epididymis is normal in overall size and morphology. Small left hydrocele. No varicoceles. Overlying scrotal skin is normal in thickness. Doppler: Color and pulse Doppler demonstrate normal and symmetric arterial flow in both testicles. IMPRESSION: No sonographic evidence of testicular torsion. Previously seen small right epididymal cyst not visualized on current exam. Small left hydrocele. Approved by: Selena Mac M.D.,Ph.D. on 03/08/2024 at 20:51
== END ==
PROVIDERS: PCP Family Medicine; Referring Provider Urology; Visit Provider Urology
DX: N50.89 Other specified disorders of the male genital organs (principal); N43.3 Hydrocele, unspecified
CPT/HCPCS: 76870

== ENCOUNTER → 2024-12-17 09:21 | Outpatient (CLI) | payer MEDICARE, SELFPAY ==
[2023-03-11 22:47] VITALS: BMI 21.7
[2024-12-17 09:51] LABS: Hematocrit 37.9 % (41-53); Hemoglobin 13.8 g/dL (13.5-17.5); Mean Corpuscular HGB Conc 36.4 % (30-36); Mean Corpuscular Hemoglobin 33.9 PG (26-34); Platelet Count 134 X10^3/uL (150-400); Red Blood Cell Count 4.08 X10^6/uL (4.5-5.9); Red Cell Distribution Width 13.1 % (11.6-14.8)
[2024-12-17 10:12] LABS: BUN Creatinine Ratio 19.7 (6-22); Blood Urea Nitrogen 30 mg/dL (9-20); Calcium 9.6 mg/dL (8.4-10.2); Carbon Dioxide 28 mmol/L (22-32); Chloride 104 mmol/L (98-107); Cholesterol 204 mg/dL (140-199); Estimated Glomerular Filt Rate 45 mL/min (>60); Glucose 98 mg/dL (70-99); HDL Cholesterol 38 mg/dL (40-60); HEMOLYSIS < 15 (0-50); LDL Cholesterol Calculated 138 mg/dL (<100); Sodium 140 mmol/L (137-145); Triglycerides 142 mg/dL (35-150)
== END ==
LOC: LAB 09:24
PROVIDERS: PCP Family Medicine; Referring Provider Internal Medicine Cardiovascular Disease; Visit Provider Internal Medicine Cardiovascular Disease
DX: I25.10 Atherosclerotic heart disease of native coronary artery without angina pectoris (principal)
CPT/HCPCS: 36415; 80048; 80061; 85027